=== PATIENT | female | born 1990 | race Caucasian/White ===

== ENCOUNTER → 2020-09-24 11:20 | Outpatient (CLI) | payer OTHER, SELFPAY ==
[2020-09-24 11:39] LABS: Hematocrit 38.5 % (37-47); Hemoglobin 12.9 g/dL (12.0-15.0); Mean Corp Hgb Conc 33.5 g/dL (32-36); Mean Corpuscular Hgb 31.9 pg (27.0-32.0); Mean Corpuscular Volume 95.1 fL (81-99); Mean Platelet Vol. 11.4 fl (6.2-12.0); Platelet Count 147 K/mm3 (150-450); RBC Distribution Width CV 12.4 % (11.6-14.6); RBC Distribution Width SD 43.2 fl (35.1-43.9); Red Blood Count 4.05 M/mm3 (4.2-5.4)
[2020-09-24 11:47] LABS: Glucose Challenge Gest 1H 50g 79 mg/dL (70-140)
== END ==
PROVIDERS: Visit Provider Obstetrics & Gynecology
DX: Z34.82 Encounter for supervision of other normal pregnancy, second trimester (principal)
CPT/HCPCS: 36415; 82950; 85027

== ENCOUNTER → 2020-12-15 | Outpatient (CLI) | payer OTHER, SELFPAY | END | disposition home or self-care (01) | LOC: LABSPEC 13:16 | PROVIDERS: Visit Provider Obstetrics & Gynecology | DX: Z36.85 Encounter for antenatal screening for Streptococcus B (principal) | CPT/HCPCS: 87081 ==

== ENCOUNTER → 2020-12-22 11:13 | Outpatient (CLI) | payer OTHER, SELFPAY ==
[2020-12-22 12:22] LABS: Platelet Count 147 K/mm3 (150-450)
== END ==
PROVIDERS: Visit Provider Obstetrics & Gynecology
DX: D69.6 Thrombocytopenia, unspecified (principal)
CPT/HCPCS: 36415; 85049

== ENCOUNTER → 2021-01-11 | Outpatient (CLI) | payer OTHER, SELFPAY | END | disposition home or self-care (01) | LOC: LABSPEC 17:07 | PROVIDERS: Visit Provider Student in an Organized Health Care Education/Training Program | DX: Z03.818 Encounter for observation for suspected exposure to other biological agents ruled out (principal) | CPT/HCPCS: 87635; U0005; U0003 ==

== ENCOUNTER 2021-01-17 07:05 | Inpatient (IN) | payer OTHER, SELFPAY ==
[2021-01-17] VITALS (19 sets, daily range): BP systolic 109–135; BP diastolic 55–83; PULSE 64–81; TEMP 36.1–37.3; O2SAT 93–98; BMI 29.8
[2021-01-17] MEDS: Lactated Ringers 1,000 ML 50 ML IV (07:45)
[2021-01-17 08:03] LABS: Absolute Lymphocyte Count 2.15 X10^3/uL (0.83-4.51); Basophil# 0.02 X10^3/uL; Basophil% 0.3 % (0-1); Eosinophil# 0.07 X10^3/uL; Hematocrit 37.9 % (37-47); Hemoglobin 12.9 g/dL (12.0-15.0); Lymphocyte # 2.15 X10^3/ul (0.83-4.51); Lymphocyte % 31.4 % (19-41); Mean Corpuscular Hgb 30.6 pg (27.0-32.0); Mean Corpuscular Volume 89.8 fL (81-99); Mean Platelet Vol. 12.4 fl (6.2-12.0); Monocyte# 0.58 X10^3/uL; Monocyte% 8.5 % (0-10); NRBC Flagged by Analyzer 0 % (0-5); Neutrophil # 3.99 X10^3/uL (2.7-7.7); Neutrophil % 58.2 % (47-70); Platelet Count 138 K/mm3 (150-450); RBC Distribution Width CV 12.6 % (11.6-14.6); RBC Distribution Width SD 41.1 fl (35.1-43.9); Red Blood Count 4.22 M/mm3 (4.2-5.4); White Blood Count 6.9 K/mm3 (4.4-11.0)
--- NOTE | 2021-01-17 08:27 | PCM.HP.OB ---
HPI - General General Date of Admission: 01/17/21 HPI Narrative 30-year-old G1, P0 at 41/1 weeks, CHELI 01/10/2020 1 x 7-week ultrasound, admitted for term induction labor. Reports movement. Denies regular contractions, leaking of fluid, vaginal bleeding. Denies headache, vision changes, chest pain, shortness of breath, nausea or vomiting. PFSH PFSH Medical History Anxiety PCOS (polycystic ovarian syndrome) Psoriasis Home Medications calcium citrate 1 mg PO DAILY 01/17/21 [History Last Taken Unknown] cholecalciferol (vitamin D3) [Vitamin D3] 25 mcg PO DAILY 01/17/21 [History Last Taken Unknown] clobetasol 1 applic TOPICAL DAILY 01/17/21 [History Last Taken Unknown] docusate sodium [Colace] 100 mg PO DAILY 01/17/21 [History Last Taken Unknown] omega 7-olr-dlc-fish oil 1 cap PO DAILY 01/17/21 [History Last Taken Unknown] vit-iron fum-folic ac [ Fa] 1 tab PO DAILY 01/17/21 [History Last Taken Unknown] Allergy/AdvReac Type Severity Reaction Status Date / Time No Known Allergies Allergy Verified 01/17/21 07:26 Surgical History H/O lumpectomy History of gynecologic surgery [place] teeth removed Social History (Updated 01/17/21 @ 17:[address] Rosemarie Edwards DO) Smoking Status: Never smoker alcohol intake: never substance use type: does not use History 1 Elective abortions Hx Para 0 Spontaneous abortions Hx # Term Pregnancies Ectopic pregnancies Hx # Pregnancies Multiple births # of living children NST FHR Rate Baby A Baseline: 125 Variability:: Moderate Accelerations:: 15 x 15 Decelerations:: None NST Reactive:: Yes FHR Category:: Category I ROS Constitutional Constitutional: Reports systems reviewed and no addt'l complaints, except as documented Eyes Eyes: Reports systems reviewed and no addt'l complaints, except as documented ENT HEENT: Reports systems reviewed and no addt'l complaints, except as documented Cardiovascular Cardiovascular: Reports systems reviewed and no addt'l complaints, except as documented Respiratory/Chest Respiratory/Chest: Reports systems reviewed and no addt'l complaints, except as documented Gastrointestinal Gastrointestinal: Reports systems reviewed and no addt'l complaints, except as documented Genitourinary Genitourinary: Reports systems reviewed and no addt'l complaints, except as documented Musculoskeletal Musculoskeletal: Reports systems reviewed and no addt'l complaints, except as documented Integumentary Integumentary: Reports systems reviewed and no addt'l complaints, except as documented Neurologic Neurologic: Reports systems reviewed and no addt'l complaints, except as documented Psychiatric Psychiatric: Reports systems reviewed and no addt'l complaints, except as documented Endocrine Endocrinology: Reports systems reviewed and no addt'l complaints, except as documented Hematologic/Lymphatic Hematologic/Lymphatic: Reports systems reviewed and no addt'l complaints, except as documented Allergic/Immunologic Allergic/Immunologic: Reports systems reviewed and no addt'l complaints, except as documented Vital Signs Vital Signs Vital Signs: 01/17/21 07:56 Temperature 97.7 F L Temperature Source Temporal Pulse Rate 81 Blood Pressure 122/77 H BP Systolic 122 BP Diastolic 77 Pulse Ox 98 Weight Weight: 78.834 kg Body Mass Index (BMI) 29.8 Physical Exam Const alert, oriented x3 and no apparent distress HEENT normocephalic Head and Scalp: atraumatic Eyes PERRL Neck full ROM Resp normal respiratory effort, no retractions and clear to auscultation bilaterally Cardio regular rate and regular rhythm GI normal to inspection, nondistended, normoactive bowel sounds Inspection: gravid Narrative: 1 cm on admission per RN Back/Spine normal ROM Extremity normal to inspection Skin no rashes or lesions noted Psych mental status grossly normal Labs Labs Labs: Blood Type O POSITIVE Antibody Screen NEGATIVE Hct 37.9 % (37-47) Hgb 12.9 g/dL (12.0-15.0) Glucose 1 Hr 50 gm 79 mg/dL (70-140) GBS neg 12/15/20 Assessment & Plan (1) : PLAN: 30 yo G1 at 41/1w admitted for induction of labor. Induction started with Cytotec. Patient now oz regularly and will start Pitocin. GBS neg 12/15/20. Gestational thrombocytopenia. (2) Gestational thrombocytopenia:
[2021-01-17] MEDS: miSOPROStol 25 MCG TABLET VAGINAL ×2 (08:38→12:36)
[2021-01-17] MEDS: 0.9% Saline Lock 10 ML Syringe IV (18:30)
[2021-01-17] MEDS: Oxytocin 30 units/NS 500 ml 30 UNITS/500 ML IV.SOLN IV (18:41)
[2021-01-17] MEDS: Lactated Ringers 500 ML 999 ML IV ×2 (19:52→23:15)
[2021-01-18] VITALS (74 sets, daily range): BP systolic 79–140; BP diastolic 50–89; PULSE 54–87; RESP 14–16; TEMP 36.2–36.7; O2SAT 90–100
[2021-01-18] MEDS: fentaNYL-bupivacaine (epidural) 100 ML BAG EPIDURAL ×3 (00:16→11:59)
[2021-01-18] MEDS: Lactated Ringers 500 ML 999 ML IV (02:41)
[2021-01-18] MEDS: Lactated Ringers 1,000 ML 200 ML IV ×3 (03:30→14:12)
--- NOTE | 2021-01-18 07:32 | PCM.PN.BLA ---
Progress Note Patient seen and examined this morning. AROM moderate meconium. Cervical exam: 4-5 cm / 80%/-1. Called overnight for recurrent late decelerations after hypotension secondary to epidural placement. Hypotension recovered with IV fluid bolus. Pitocin turned off at that time, oxygen on, position changes. With recovery of normotension, heart rate returned to category 1. Pitocin turned off again around 540 this morning due to late decelerations. With again recovery of heart tracing. Decision to artificially rupture membranes this morning was made with reassuring heart tones, in an effort to help augment labor. Will plan to wait 20 minutes after AROM and if status reassuring we will resume Pitocin at 1 milliunit/h. Titrate by 1. Patient is aware that the alternative energy engineer and respiratory will be present at time of delivery due to meconium. Discussed labor pattern, AROM, Pitocin titration at length with patient this morning and her at bedside. All questions answered.
[2021-01-18] MEDS: Oxytocin 30 units/NS 500 ml 30 UNITS/500 ML IV.SOLN 334 UNITS IV (15:25)
--- NOTE | 2021-01-18 15:39 | EX.PCM.OBRPT ---
Maternal Data Information Final CHELI: 01/09/21 Final CHELI Source: US <20 weeks Vaginal Delivery Operative Information Date of Procedure: 01/18/21 Pre-Operative Diagnosis: Term bradshaw intrauterine Post-Operative Diagnosis: Term bradshaw intrauterine Surgery / Procedure Performed: Spontaneous Vaginal Delivery Type of Anesthesia: Epidural Estimated Blood Loss: 300cc Findings Description of Procedure: Spontaneous vaginal delivery viable infant male. No nuchal cord. Baby to mother. Cord clamped and cut. Spontaneous delivery of placenta. First-degree laceration repaired in usual fashion. Hemostatic. Hospital Chief Executive Officer present at delivery for meconium fluid. Cord Entanglement: None Infant A Gender: Male (1 minute): 8 (5 minute): 9
[2021-01-18] MEDS: Ibuprofen 600 MG Tablet PO (22:07)
[2021-01-19] VITALS (10 sets, daily range): BP systolic 111–131; BP diastolic 67–84; PULSE 64–72; RESP 15–16; TEMP 36–36.5; O2SAT 96–98
[2021-01-19] MEDS: Ibuprofen 600 MG Tablet PO ×4 (04:44→23:57)
--- NOTE | 2021-01-19 09:50 | PCM.PN.OB ---
Subjective Subjective Patient without complaints. Minimal vaginal bleeding reported. Wants to go home today if baby is able to go. Breast-feeding going well. Objective Data Objective Data Vital Signs: Vital Signs Temp Pulse Resp BP Pulse Ox 97.7 F L 72 16 131/84 H 98 01/19/21 09:25 01/19/21 09:25 01/19/21 09:17 01/19/21 09:25 01/19/21 09:17 Oxygen Delivery Method Room Air Weight: 173 lb 12.8 oz Body Mass Index (BMI) 29.8 Intake & Output: Intake and Output for Last 24 Hours 01/17/21 01/18/21 01/19/21 23:59 23:59 23:59 Intake Total 1259.88 / 1259.88 4940.46 / 4940.46 Output Total 3600 / 3600 Balance 1259.88 / 1259.88 1340.46 / 1340.46 Lab / Micro Data Result Diagrams: 01/17/21 07:45 Assessment & Plan (1) : PLAN: Doing well day #1 status post routine spontaneous vaginal delivery. Will discharge to home with routine instructions if baby is able to go home today.
--- NOTE | 2021-01-19 09:51 | PCM.DC ---
Discharge Instructions Diet Discharge Diet: No restrictions Activity Discharge Activity: May Drive (In 1 to 2 days if not taking narcotic pain medication), May Shower and May Take a Tub Bath May resume sexual activity in: 4-6 weeks Additional Activity Instructions:: Nothing in the vagina for 4-6 weeks. You may return to work/school in 6 weeks. Dressing / Incision Call your doctor if you observe: Fever of 101 or Higher, Inability to urinate, Inability to have a bowel movement and Using more than 1 pad per hour Follow Up Care Please Follow Up With: Rosemarie Edwards DO When: Call [phone] to make an appointment with your doctor in 6 weeks. Test Results: Test results from this visit will be discussed in further detail at your follow-up appointment, if applicable. Discharge Plan Admission Admit Date/Time: 01/17/21 07:05 Primary Reason for Your Visit: Vaginal Delivery Attending Provider: Rosemarie Edwards Primary Care Provider: Care Physician,No Primary Consulting Providers: Rosemarie Edwards Discharge Orders/Prescriptions Prescriptions: No Action clobetasol 0.05 % Cream 1 applic TOPICAL DAILY RF: 0 Fa 60 mg iron-1 mg Tablet 1 tab PO DAILY RF: 0 docusate sodium [Colace] 100 mg Capsule 100 mg PO DAILY RF: 0 calcium citrate 150 mg Capsule 1 mg PO DAILY RF: 0 cholecalciferol (vitamin D3) [Vitamin D3] 25 mcg (1,000 unit) Capsule 25 mcg PO DAILY RF: 0 omega 0-qjs-qwc-fish oil 300-1,000 mg Capsule 1 cap PO DAILY RF: 0 Referrals / Follow Up: Care Physician,No Primary [Primary Care Provider] - Disposition Disposition (needs filled in before D/C Order can be placed): Home, Self Care
[2021-01-19] MEDS: Senna/Docusate Sodium 1 Tablet PO (11:56)
--- NOTE | 2021-01-19 15:26 | NURSING ---
Reviewed student charting that is used for education and learning purposes.
[2021-01-19] MEDS: Benzocaine/Lanolin/Aloe Vera 1 SPRAY EACH TOPICAL (15:30)
[2021-01-20 02:50] VITALS: BP 103/77; PULSE 61; PULSE 70; RESP 16; TEMP 36.2; O2SAT 97
--- NOTE | 2021-01-20 08:47 | PCM.DC.BLA ---
Discharge Summary Date of Admission: 01/17/21 Date of Discharge: 01/20/21 Summary: Patient arrived on 01/17/2021 for induction of labor at term. Patient proceeded to spontaneous vaginal delivery on 01/18/2021. Routine recovery. Home on 01/20/2021 Physical Exam Const alert, oriented x3, no apparent distress, average body habitus, no limitations, healthy appearing and well nourished HEENT normocephalic Eyes PERRL Neck full ROM Resp normal respiratory effort, normal air movement, no retractions and no use of accessory muscles GI normal to inspection, nondistended, normoactive bowel sounds GI Narrative: Uterus firm and below umbilicus Extremity normal to inspection, full ROM and normal capillary refill Neuro moves all extremities Psych mental status grossly normal, thought process normal, cooperative, affect normal and speech normal Meaningful Use Info Meaningful Use Diagnoses (Choose all that apply): None applicable Discharge Plan Admission Admit Date/Time: 01/17/21 07:05 Primary Reason for Your Visit: Vaginal Delivery Attending Provider: Rosemarie Edwards Primary Care Provider: Val Castillo Primary Consulting Providers: Rosemarie Edwards Instructions Additional Instructions / Restrictions: Weightbearing as tolerated. Regular diet. No intercourse for 4 to 6 [address] May [address] Call if fever 101, chest pain, shortness of breath. Follow-up 2-week telehealth visit, 4 to 6-week visit Discharge Orders/Prescriptions Prescriptions: No Action clobetasol 0.05 % Cream 1 applic TOPICAL DAILY RF: 0 Fa 60 mg iron-1 mg Tablet 1 tab PO DAILY RF: 0 docusate sodium [Colace] 100 mg Capsule 100 mg PO DAILY RF: 0 calcium citrate 150 mg Capsule 1 mg PO DAILY RF: 0 cholecalciferol (vitamin D3) [Vitamin D3] 25 mcg (1,000 unit) Capsule 25 mcg PO DAILY RF: 0 omega 1-wxm-ibo-fish oil 300-1,000 mg Capsule 1 cap PO DAILY RF: 0 Referrals / Follow Up: Care Physician,No Primary [Primary Care Provider] - Disposition Disposition (needs filled in before D/C Order can be placed): Home, Self Care
--- NOTE | 2021-01-20 08:49 | PCM.PN.OB ---
Subjective Subjective No overnight complaints. Pain well controlled. Objective Data Objective Data Vital Signs: Vital Signs Temp Pulse Resp BP Pulse Ox 97.2 F L 70 16 103/77 97 01/20/21 02:50 01/20/21 02:50 01/20/21 02:50 01/20/21 02:50 01/20/21 02:50 Oxygen Delivery Method Room Air Weight: 173 lb 12.8 oz Body Mass Index (BMI) 29.8 Intake & Output: Intake and Output for Last 24 Hours 01/18/21 01/19/21 01/20/21 23:59 23:59 23:59 Intake Total 4940.46 / 4940.46 Output Total 3600 / 3600 Balance 1340.46 / 1340.46 Lab / Micro Data Result Diagrams: 01/17/21 07:45 Physical Exam Const alert, oriented x3, no apparent distress, average body habitus, healthy appearing and well nourished HEENT normocephalic and moist oral mucous membranes Head and Scalp: atraumatic Face and Sinus: normal facial exam Eyes PERRL Neck full ROM Resp normal respiratory effort, no retractions and no use of accessory muscles GI normal to inspection, nondistended, normoactive bowel sounds GI Narrative: Uterus firm and below umbilicus Extremity normal to inspection, full ROM and no clubbing, cyanosis or edema Psych mental status grossly normal, affect normal, speech normal and activity/motor behavior normal Assessment & Plan (1) : PLAN: day 2. Breast-feeding. Pain well controlled. Okay to discharge home today
[2021-01-20 08:52] VITALS: BP 119/80; PULSE 65
[2021-01-20 08:59] VITALS: BP 119/80; PULSE 65; RESP 16; TEMP 36.9
--- NOTE | 2021-01-25 12:36 | ED.RN ---
Follow up phone call completed, patient denies any needs. 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 Denied any other symptoms or concerns.
== END 2021-01-20 10:45 | disposition home or self-care (01) | DRG 807 ==
PROVIDERS: Admitting Provider Student in an Organized Health Care Education/Training Program; Visit Provider Student in an Organized Health Care Education/Training Program
DX: O99.284 Endocrine, nutritional and metabolic diseases complicating childbirth (principal); Z37.0 Single live birth; E28.2 Polycystic ovarian syndrome; Z3A.41 41 weeks gestation of pregnancy; L40.9 Psoriasis, unspecified; O99.12 Other diseases of the blood and blood-forming organs and certain disorders involving the immune mechanism complicating childbirth; D69.6 Thrombocytopenia, unspecified; O77.0 Labor and delivery complicated by meconium in amniotic fluid; O76 Abnormality in fetal heart rate and rhythm complicating labor and delivery; O70.0 First degree perineal laceration during delivery
CPT/HCPCS: 59025; 59050; 85025; 86850; 86900; 86901; 99218; J7120; A4216; G0378

== ENCOUNTER 2021-12-09 11:05 | Outpatient (CLI) | payer SELFPAY | END 2021-12-09 11:35 | disposition home or self-care (01) | LOC: WPOUT 11:09 → WP 11:13 | PROVIDERS: Visit Provider Student in an Organized Health Care Education/Training Program | DX: Z39.1 Encounter for care and examination of lactating mother (principal) | CPT/HCPCS: 96158 ==

== ENCOUNTER → 2022-01-09 | Outpatient (CLI) | payer BC, SELFPAY ==
[2022-01-15 10:00] LABS: HPV APTIMA, High Risk Negative (Negative)
== END | disposition home or self-care (01) ==
LOC: LABSPEC 10:12
PROVIDERS: Visit Provider Student in an Organized Health Care Education/Training Program
DX: Z12.4 Encounter for screening for malignant neoplasm of cervix (principal)
CPT/HCPCS: 87624; 88175; G0145

== ENCOUNTER → 2022-05-08 | Outpatient (CLI) | payer BC, SELFPAY ==
--- NOTE | 2022-05-08 13:11 | US_ITS ---
STUDY: THYROID ULTRASOUND REASON FOR EXAM: Female, 31 years old. Enlarged lymphnode-PALP LUMP-LEFT TECHNIQUE: Ultrasound evaluation of the thyroid was performed with real-time and static franco-scale imaging. COMPARISON: None. FINDINGS: RIGHT LOBE: The right lobe of the thyroid gland is enlarged and measures 5.3 cm x 2.1 cm x 1.7 cm. There is a heterogeneous echotexture. There is a 5 mm x 4 mm x 4 mm well-defined solid nodule in the inferior medial aspect of the right lobe. LEFT LOBE: The left lobe of the thyroid gland measures 4.9 cm x 1.9 cm x 1.7 cm. There is a heterogeneous echotexture. There is a 3 mm x 2 mm x 3 mm cystic nodule in the midportion of the left lobe. ISTHMUS: The isthmus measures 2 mm. Bilateral cervical lymphadenopathy is seen. The largest lymph node in the right-sided neck measures 1.77 x 1.8 cm x 0.8 cm. The palpable abnormality in the left-sided neck corresponds to a 2.2 cm x 1.8 cm x 1 cm lymph node. US/Thyroid IMPRESSION: Enlarged right lobe of the thyroid with heterogeneous echotexture of both lobes. 5 mm x 4 mm x 4 mm well-defined hypoechoic solid nodule in the right lobe as well as a 3 mm x 2 mm x 3 mm cyst in the midportion of the left lobe. Bilateral cervical lymph nodes. Electronically Signed: Shahid Higgins MD at 12:06 EST ,
== END | disposition home or self-care (01) ==
PROVIDERS: Referring Provider Family Medicine; Visit Provider Family Medicine
DX: R59.0 Localized enlarged lymph nodes (principal)
CPT/HCPCS: 76536

== ENCOUNTER → 2022-10-04 | Outpatient (CLI) | payer BC, SELFPAY ==
[2022-10-04 13:14] LABS: Absolute Lymphocyte Count 2.04 X10^3/uL (0.83-4.51); Absolute Neutrophil Count 3.4 X10^3/uL (2.0-7.7); Basophil# 0.03 X10^3/uL; Basophil% 0.5 % (0-1); Eosinophil# 0.08 X10^3/uL; Eosinophils% 1.4 % (0-5); Hematocrit 41.9 % (37-47); Lymphocyte # 2.04 X10^3/ul (0.83-4.51); Lymphocyte % 34.5 % (19-41); Mean Corp Hgb Conc 33.4 g/dL (32-36); Mean Corpuscular Hgb 30.9 pg (27.0-32.0); Mean Corpuscular Volume 92.5 fL (81-99); Mean Platelet Vol. 11.8 fl (6.2-12.0); Monocyte# 0.38 X10^3/uL; Monocyte% 6.4 % (0-10); NRBC Flagged by Analyzer 0 % (0-5); Neutrophil # 3.35 X10^3/uL (2.7-7.7); Neutrophil % 56.5 % (47-70); Platelet Count 172 K/mm3 (150-450); RBC Distribution Width CV 12.2 % (11.6-14.6); RBC Distribution Width SD 41.7 fl (35.1-43.9); Red Blood Count 4.53 M/mm3 (4.2-5.4); White Blood Count 5.9 K/mm3 (4.4-11.0)
[2022-10-04 14:48] LABS: HIV - WCH Non-Reactive (Nonreactive); Hepatitis B Surface Antigen Non-Reactive (Nonreactive); Hepatitis C Antibody Non-Reactive (Nonreactive); Rubella IgG Reactive (Nonreactive); Syphilis Antibodies Non-reactive
[2022-10-06 05:07] LABS: Chlamydia By Nucleic Acid AMP Negative (Negative); Gonococcus By Nucleic Acid AMP Negative (Negative)
[2022-10-06 08:11] LABS: V-Zoster IgG (Immunity) 1303 index (Immune >165)
[2022-10-06 22:07] LABS: HPV APTIMA, High Risk Negative (Negative)
== END | disposition home or self-care (01) ==
LOC: LABSPEC 10:34
PROVIDERS: Visit Provider Student in an Organized Health Care Education/Training Program
DX: Z34.81 Encounter for supervision of other normal pregnancy, first trimester (principal); N91.1 Secondary amenorrhea
CPT/HCPCS: 36415; 85025; 86703; 86762; 86780; 86787; 86803; 87086; 87340; 87491; 87591; 87624; 88175; G0145

== ENCOUNTER → 2023-01-31 | Outpatient (CLI) | payer BC, SELFPAY ==
[2023-01-31 14:11] LABS: Absolute Neutrophil Count 3.7 X10^3/uL (2.0-7.7); Basophil# 0.02 X10^3/uL; Basophil% 0.3 % (0-1); Eosinophils% 1.6 % (0-5); Hematocrit 39.5 % (37-47); Hemoglobin 13.3 g/dL (12.0-15.0); Lymphocyte % 30.8 % (19-41); Mean Corp Hgb Conc 33.7 g/dL (32-36); Mean Corpuscular Hgb 32.4 pg (27.0-32.0); Mean Corpuscular Volume 96.3 fL (81-99); Mean Platelet Vol. 11.3 fl (6.2-12.0); Monocyte# 0.34 X10^3/uL; Monocyte% 5.5 % (0-10); NRBC Flagged by Analyzer 0 % (0-5); Neutrophil # 3.73 X10^3/uL (2.7-7.7); Neutrophil % 60.7 % (47-70); Platelet Count 153 K/mm3 (150-450); RBC Distribution Width CV 12.8 % (11.6-14.6); RBC Distribution Width SD 44.9 fl (35.1-43.9); White Blood Count 6.2 K/mm3 (4.4-11.0)
[2023-01-31 14:24] LABS: Glucose Challenge Gest 1H 50g 150 mg/dL (70-140)
[2023-01-31 14:58] LABS: HIV - WCH Non-Reactive (Nonreactive); Syphilis Antibodies Non-reactive
== END | disposition home or self-care (01) ==
LOC: LAB 13:31
PROVIDERS: PCP Family Medicine; Referring Provider Obstetrics & Gynecology; Visit Provider Obstetrics & Gynecology
DX: Z34.90 Encounter for supervision of normal pregnancy, unspecified, unspecified trimester (principal)
CPT/HCPCS: 36415; 82950; 85025; 86703; 86780; 86850; 86900; 86901

== ENCOUNTER → 2023-03-01 | Outpatient (CLI) | payer BC, SELFPAY ==
[2023-03-01 08:40] LABS: Glucose GTT-Gestation. Fasting 80 mg/dL (<105)
[2023-03-01 09:16] LABS: Glucose GTT-Gestational 1 Hr 101 mg/dL (<190)
[2023-03-01 09:50] LABS: Glucose GTT-Gestational 2 Hr 113 mg/dL (<165)
[2023-03-01 11:04] LABS: Glucose GTT-Gestational 3 Hr 80 L (<145)
== END | disposition home or self-care (01) ==
LOC: LAB 07:00
PROVIDERS: PCP Family Medicine; Referring Provider Nurse Practitioner Women's Health; Visit Provider Nurse Practitioner Women's Health
DX: Z13.1 Encounter for screening for diabetes mellitus (principal)
CPT/HCPCS: 36415; 82951; 82952

== ENCOUNTER → 2023-04-18 | Outpatient (CLI) | payer BC, SELFPAY ==
--- OUTSIDE RECORDS SUMMARY | 2023-04-18 10:29 | XMS RPT_ITS | CCD ---
Author Name Unknown Address [address] [place] [address] Organization [facility] Care Team Providers Care Filling Carrier Name Role Phone Dari Neves Unavailable Unavailable Gillian Dubois Unavailable Unavailable JB SPAULDING Unavailable Unavailab JB Shay Unavailable Unavailab DEBI Skelton Unavailable Unavailable NIDA CARY Unavailable UnavailCLARENCE Almonte M.D. Unavailable Shayna vailable RAMON BUSBY Unavailable Unavailable Gillian Dubois PA-C Primary Care Provider Gillian Dubois PA-C Primary Care Provider DR BENJAMÍN VILLEGAS DO Primary Care Unavailable ROMAN DE LA CRUZ Attending Shayna vailable MARELY, PATRICK F Attending Unavailable DAVID GONG Referring Unavailabl YUSRA Sol Primary Care Unavailable MARELY, PATRICK F Attending Unavailable DAVID GONG Referring Unavailabl e YUSRA CARVER Primary Care Unavailable DAVID GONG Referring Unavailabl e YUSRA CARVER M Primary Care Unavailable YAP, PATRICK F Attending Unavailable DAVID GONG Referring Unavailabl EDUARDO Weinberg Attending Unavailable YUSRA CARVER Primary Care Unavailable DAVID GONG Referring Unavailabl YUSRA Sol M Primary Care Unavailable YAP, PATRICK F Attending Unavailable Medications Current Medications Medication Drug Class(es) Dates Sig (Normalized) Sig (Original) polymyxin b 34547 unt/ml / trimethoprim 1 mg/ml ophthalmic solution (2 sources) Dihydrofolate Reductase Inhibitor Antibacterial, Polymyxin-class Antibacterial Start: 07-26-2021 End: 08-02-2021 take 2 drop(s) into the eye(s) every four hours trimethoprim-polymy jorge (POLYTRIM) 10,000 unit- 1 mg/mL ophthalmic solution Indications: Bacterial conjunctivitis Use 2 Drops in both eyes every 4 hours for 7 days. 10 mL 0 07/26/2021 08/02/2021 Active Problems Active Problems Problem Classification Problem Date Documented Da te Episodic/Chronic Inflammation; infection of eye (except that caused by tuberculosis or sexually transmitteddisease) (1 source) Bacterial conjunctivitis; Translations: [Unspecified conjunctivitis] Episodic Other eye disorders (1 source) Red eye; Translations: [Other specified disorders of eye and adnexa] Episodic Other eye disorders (1 source) Disorder of eye; Translations: [Other specified disorders of eye and adnexa] Episodic Other inflammatory condition of skin (3 sources) Psoriasis; Translations: [Psoriasis, unspecified] Onset: 08-02-2018 08-02-2018 Chronic Other lower respiratory disease (2 sources) Cough; Translations: [Cough] Episodic Unclassified (2 sources) Unknown / UNK(Unknown) Onset: 10-18-2016 Past or Other Problems Problem Classification Problem Date Documented Da te Episodic/Chronic Other and unspecified benign neoplasm (3 sources) Multiple benign melanocytic nevi ; Translations: [Melanocytic nevi, unspecified] Onset: 08-02-2018 08-02-2018 Episodic Other skin disorders (3 sources) Lentiginosis; Translations: [Other melanin hyperpigmentation] Onset: 08-02-2018 08-02-2018 Episodic Residual codes; unclassified (3 sources) History of atypical nevus; Translations: [Personal history of other specified conditions] Onset: 08-02-2018 08-02-2018 Episodic Unclassified (1 source) SORE THROAT,COUGH,NASAL CONGESTION Onset: 04-02-2017 Unclassified (1 source) RASH Onset: 10-18-2016 Results Test Name Value Interpretation Reference Range Facil ity Vital Signs Date Time Vital Sign Value Performing Clinician Richard joel 07-26-2021 08:52-0400 Body height 162.6 cm Marlen Beebe PA-C Work Phone: [facility] 07-26-2021 08:52-0400 Body temperature 98.29 [degF] Marlen Wormald PA-C Work Phone: [facility] 07-26-2021 08:52-0400 Body weight 69.4 kg Marlen Wormald PA-C Work Phone: [facility] 07-26-2021 08:52-0400 Diastolic blood pressure 67 mm[Hg] Marlen Wormald PA-C Work Phone: [facility] 07-26-2021 08:52-0400 Heart rate 74 /min Marlen Wormald PA-C Work Phone: [facility] 07-26-2021 08:52-0400 Respiratory rate 16 /min Marlen Wormald PA-C Work Phone: [facility] 07-26-2021 08:52-0400 SaO2% (BldA) [Mass fraction] 98 % Marlen Wormald PA-C Work Phone: [facility] 07-26-2021 08:52-0400 Systolic blood pressure 98 mm[Hg] Marlen Wormald PA-C Work Phone: [facility] Encounters Encounter Date Encounter Type Care Provider Facility Start: 04-12-2023 End: 04-12-2023 ambulatory [facility] Start: 04-06-2023 End: 04-06-2023 ambulatory [facility] Start: 03-13-2023 End: 03-13-2023 ambulatory [place] Yonathan [facility] Start: 02-13-2023 End: 02-13-2023 ambulatory [facility] Start: 02-13-2023 End: 02-13-2023 ambulatory PATR[facility] Start: 12-29-2022 End: 12-30-[address] BENJAMÍN VILLEGAS DO Facility:B Start: 07-26-2021 End: 07-26-2021 Subsequent hospital visit by physician [facility] Procedures Date Procedure Procedure Detail Performing Clinician Start: 12-04-2018 Adult depression screening assessment Marlen Beebe PA-C Work Phone: Start: 08-15-2007 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 Start: 08-16-2023 HPV TESTING HPV TESTING [facility] Start: 11-24-2022 Influenza vaccination Influenza Vacc ine (#1) [facility] Start: 03-26-2022 Depression Assessment Depression Ass essment [facility] Start: 11-24-2021 Influenza vaccination INFLUENZA (Sea son Ended) [facility] Start: 12-05-2019 Adult depression scr eening assessment DEPRESSION SCREENING [facility] Start: [address] [facility] Start: 06-08-2007 HEPATITIS C SCREENING HEPATITIS C SC REENING [facility] Start: 06-08-2007 HIV SCREENING HIV SCREENING [facility] Start: 1994 COVID-19 VACCINE (1) COVID-19 VACCIN E (1) [facility] Start: 1989 Covid-19 Vaccine (#1) Covid-19 Vacci ne (#1) [facility] Start: 1989 Hepatitis B Vaccine (1 of 3 - 3-dose series) Hepatitis B Vaccine (1 of 3 - 3-dose series) [facility] Immunizations Immunization Date Immunization Notes Care Provider Fa cili 01-07-2020 influenza virus vacc ine, unspecified formulation Khris Fry MD Work Phone: [facility] Payers Date Payer Category Payer Unknown [id number] 2020 Private Health Insurance [facility] UMR CHOICE PLUS [id number] 2020-Present [phone] [address] [address] [place] [address] O [id number] 2017 Unknown [id number] 1989 Unknown [id number] 1989 Unknown [id number] 1989 Unknown [id number] 1989 Unknown [id number] 1989 Unknown [id number] 1989 Unknown [id number] 1989 Unknown [id number] Unknown [id number] Social History Date Type Detail Facility Start: 08-02-2018 Tobacco smoking status NMIS Never sm oked tobacco [facility] Start: 08-02-2018 Tobacco use and exposure Smoke less tobacco non-user [facility] Start: 01-23-2021 Alcohol intake Lifetime non-d iram (finding) [facility] Start: 02-04-2019 End: 01-15-2020 History SDOH Alcohol Frequency 1 [facility] Start: 02-04-2019 History SDOH Financial 5 [facility] Start: 02-04-2019 History SDOH Transport Med 2 [facility] Start: 1989 Sex Assigned At Not on file [facility] Start: 07-16-2021 End: 07-26-2021 Exposure to SARS-CoV-2 (event) Not sure 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 Start: 01-15-2020 End: 03-02-2020 History of Social function [facility] Start: 01-15-2020 End: 03-02-2020 Alcohol Use Disorder Identification Test - Consumption [AUDIT-C] [facility] How often to you hav e a drink containing alcohol? Never [facility] Average Number of Drinks Not on file [facility] (I/We) worried whealex er (my/our) food would run out before (I/we) got money to buy more. Never true [facility] Progress note 07-26-2021 Note Date & Type Note Facility 07-26-2021 Note HNO ID: [id number] Author: OBDULIO Valentin) Service: Radiology Author Type: Technologist Type: Progress Notes Filed: 07/26/2021 10:54 AM Note Text: Radiology Service Progress Note PATIENT NAME: Benjie Quarles DATE OF SERVICE: July 26, 2021 TIME: 10:54 AM PATIENT IDENTITY VERIFICATION COMPLETED USING TWO (2) IDENTIFIERS: Name and Date of confirmed by patient verbally. FALL SCREENING: Has the patient had 2 falls in the last year or 1 fall with injury or currently using an Ambulatory Assistive Device (Walker, Cane, Wheelchair, Crutches, etc.)? No PATIENT GENDER DATA: Female. status: : No status: NO. PATIENT RELEVANT IMPLANT DATA REVIEWED: Not Applicable RADIOLOGY DEPARTMENT: General X-ray: Exam(s) Completed: Chest X-Ray PERIPHERAL IV DATA: Not applicable SIGNED BY: OBDULIO Valentin) July 26, 2021 10:54 AM [facility] History of Present illness Narrative 07-26-2021 OBDULIO Valentin) - 07/26/2021 10:45 AM EDT Note Date & Type Note Facility 07-26-2021 History of Presen t illness Narrative Radiology Service Progress Note PATIENT NAME: Benjie Quarles DATE OF SERVICE: July 26, 2021 TIME: 10:54 AM PATIENT IDENTITY VERIFICATION COMPLETED USING TWO (2) IDENTIFIERS: Name and Date of confirmed by patient verbally. FALL SCREENING: Has the patient had 2 falls in the last year or 1 fall with injury or currently using an Ambulatory Assistive Device (Walker, Cane, Wheelchair, Crutches, etc.)? No PATIENT GENDER DATA: Female. status: : No status: NO. PATIENT RELEVANT IMPLANT DATA REVIEWED: Not Applicable RADIOLOGY DEPARTMENT: General X-ray: Exam(s) Completed: Chest X-Ray PERIPHERAL IV DATA: Not applicable SIGNED BY: OBDULIO Valentin) July 26, 2021 10:54 AM documented in this encounter [facility] Progress note 07-26-2021 Note Date & Type Note Facility 07-26-2021 Note HNO ID: [id number] Author: Marlen Beebe PA-C Service: ? Author Type: Physician Frame Opener Type: Progress Notes Filed: 07/26/2021 9:11 AM Note Text: Subjective Benjie Quarles is a 31 year old female with no significant past medical history who [facility] for evaluation of bilateral eye redness, irritation, and discharge that began last night. Patient also endorses a productive cough x1 week. She states that the cough has been productive of yellow sputum. She denies having any fevers. No known COVID-19 or influenza exposure. Review of Systems Constitutional: Negative for chills, diaphoresis and fever. HENT: Negative for congestion, ear pain and sore throat. Eyes: Positive for pain (irritation, bilateral), discharge (bilateral) and redness (bilateral). Respiratory: Positive for cough. Negative for shortness of breath and wheezing. Skin: Negative for rash and wound. Neurological: Negative for weakness and headaches. All other systems reviewed and are negative. Objective BP 98/67 Pulse 74 Temp 36.8 ?C (98.3 ?F) (Tympanic) Resp 16 Ht 162.6 cm (5' 4 ) Wt 69.4 kg (153 lb) LMP 07/26/2021 SpO2 98% Yes BMI 26.26 kg/m? Physical Exam Vitals reviewed. Constitutional: General: She is not in acute distress. Appearance: Normal appearance. She is normal weight. She is not ill-appearing or toxic-appearing. Comments: The patient appears to be non-toxic, in no acute distress, and resting comfortably in a chair. HENT: Head: Normocephalic and atraumatic. Eyes: General: Right eye: Discharge present. Left eye: Discharge present. Extraocular Movements: Extraocular movements intact. Conjunctiva/sclera: Right eye: Right conjunctiva is injected. Left eye: Left conjunctiva is injected. Pupils: Pupils are equal, round, and reactive to light. Cardiovascular: Rate and Rhythm: Normal rate and regular rhythm. Heart sounds: Normal heart sounds. No murmur heard. No friction rub. No gallop. Pulmonary: Effort: Pulmonary effort is normal. No respiratory distress. Breath sounds: Rhonchi (bilateral lower) present. No wheezing. Musculoskeletal: Cervical back: Normal range of motion. Skin: General: Skin is warm and dry. Findings: No erythema or rash. Neurological: General: No focal deficit present. Mental Status: She is alert and oriented to person, place, and time. Mental status is at baseline. Psychiatric: Mood and Affect: Mood normal. Behavior: Behavior normal. Thought Content: Thought content normal. Assessment and Plan Exam reveals bilateral conjunctival injection consistent with acute bacterial conjunctivitis. There are mild bilateral rhonchi heard in the bilateral lung bases upon auscultation of the lungs. Chest x-ray ordered to rule out pneumonia. Patient counseled regarding suspected diagnosis and given prescription for Polytrim ophthalmic solution. Patient advised to follow-up with her primary care provider as needed. ASSESSMENT/PLAN: 1. Cough - ICD9: 786.2, ICD10: R05.9 (primary diagnosis) - XR CHEST 2V FRONTAL/LAT 2. Bacterial conjunctivitis - ICD9: 372.39, 041.9, ICD10: H10.9 - POLYMYXIN B SULFATE 10,000 UNIT-TRIMETHOPRIM 1 MG/ML EYE DROPS 3. Eye redness - ICD9: 379.93, ICD10: H57.89 4. Eye irritation - ICD9: 379.99, ICD10: H57.89 Medical Decision Making: Problems: Low: 2+ self-limited or minor problems Risk: Minimal: Minimal risk from testing/treatment Moderate: Drug management Medical Decision Making Level: 3 - Low I spent a total of 20 minutes on the date of the service which included preparing to see the patient, [id number] patient care, completing clinical documentation, performing a medically appropriate examination, counseling and educating the patient/family/caregiver and ordering medications, tests, or procedures. [facility] Instructions 07-26-2021 Patient Instructions Note Date & Type Note Facility 07-26-2021 Instructions Marlen Beebe PA-C - 07/26/2021 9:05 AM EDT [facility] PATIENT INFO CONJUNCTIVITIS OVERVIEW Conjunctivitis, also called pinkeye , is defined as an inflammation of the conjunctiva. The conjunctiva is the thin membrane that lines the inner surface of the eyelids and the whites of the eyes (called the sclera). Conjunctivitis can affect children and adults. The most common symptoms of conjunctivitis include a red eye and discharge. There are many potential causes of conjunctivitis, including bacterial or viral infections, allergies, or a non-specific condition (eg, a foreign body in the eye). All types of conjunctivitis cause a red eye, although not everyone with a red eye has conjunctivitis. TYPES OF CONJUNCTIVITIS There are four main types of conjunctivitis: bacterial, viral, allergic, and non-specific. Most cases of infectious conjunctivitis are viral in adults and children; however, bacterial conjunctivitis is more common in children than in adults. Viral conjunctivitis Viral conjunctivitis is typically caused by a virus that can also cause the common cold. A person may have symptoms of conjunctivitis alone, or as part of a general cold syndrome, with swollen lymph nodes (glands), fever, a sore throat, and runny nose. Viral conjunctivitis is highly contagious. It is spread by contact, usually with objects which have come into contact with the infected person's eye secretions. As examples, the virus can be transmitted when an infected person touches their eye and then touches another surface (eg, door handle) or shares an object that has touched their eye (eg, a towel or pillow case). The most common symptoms of viral conjunctivitis include redness, watery or mucus discharge, and a burning, giorgio, or gritty feeling in one eye. Some people have morning crusting followed by watery discharge, perhaps with some scant mucus discharge throughout the day. The second eye usually becomes infected within 24 to 48 hours. There is no cure for viral conjunctivitis. Recovery can begin within days, although the symptoms frequently get worse for the first three to five days, with gradual improvement over the following one to two weeks for a total course of two to three weeks. Some people experience morning crusting that continues for up to two weeks after the initial symptoms, although the daytime redness, irritation, and tearing should be much improved. Bacterial conjunctivitis Bacterial conjunctivitis is highly contagious, often affecting multiple family members or children within a classroom. Bacterial conjunctivitis is spread by contact, usually with objects which have come into contact with the infected person's eye secretions. As examples, the virus can be transmitted when an infected person touches their eye and then touches another surface (eg, door handle) or shares an object that has touched their eye (eg, a towel or pillow case). The most common symptoms of bacterial conjunctivitis include redness and thick discharge from one eye, although both eyes can become infected. The discharge may be yellow, white, or green, and it usually continues to drain throughout the day. The affected eye often is stuck shut in the morning. Most types of bacterial conjunctivitis resolve quickly and cause no permanent damage when treated with antibiotic eye drops or ointment Non-specific conjunctivitis It is possible to develop a red eye and discharge that is not caused by an infection or allergy. The most common causes include one of the following. People with a dry eye may have chronic or intermittent redness or discharge. A person whose eyes are irrigated after a chemical splash may have redness and discharge. A person with a foreign body (eg, dust, eyelash) in the eye may have redness and discharge for 12 to 24 hours after the object is removed. All of these problems generally improve spontaneously within 24 hours. CONJUNCTIVITIS TREATMENT The treatment of conjunctivitis depends upon the cause. For this reason, it is important to have the correct diagnosis before treatment begins. Viral conjunctivitis treatment A topical antihistamine/decongestant eye drop may help to relieve the itching and irritation of viral conjunctivitis. These drops are available without a prescription in most pharmacies. However, particular care must be taken to avoid spreading viral infections from one eye to the other apply drops only to affected eye and wash hands thoroughly after application. Similar to cold medicines, this treatment may reduce the symptoms but does not shorten the course of the infection. Another option is to use warm or cool compresses, as needed. The irritation and discharge may get worse for three to five days before getting better, and symptoms can persist for two to three weeks. Bacterial conjunctivitis treatment Bacterial conjunctivitis is usually treated with an antibiotic eye drop or ointment. When started early, treatment helps to shorten the duration of symptoms, although most cases do resolve spontaneously if no treatment is used. Adults Adults are usually treated with an antibiotic eye drop or ointment for five to seven days. Redness, irritation, and eye discharge should begin to improve within 24 to 48 hours. If there is no improvement or if the condition worsens within this time, the person should be evaluated by an crew supervisor. Contact lens wearers People who wear contact lenses should be evaluated by a healthcare provider before treatment begins; this is to confirm the diagnosis of conjunctivitis and to be sure that another, more serious condition related to contact lens use (an infection of the cornea), is not present. People who wear contact lenses should avoid wearing the lenses during the first 24 hours of treatment, or until the eye is no longer red. The contact case should be thrown away and the contacts disinfected overnight or replaced (if disposable). Return to work/school The safest approach to avoid spreading viral and bacterial conjunctivitis to others is to stay home until there is no longer any discharge from the eye(s). However, this is not practical for most students and for those who work outside the home. Most daycare centers and schools require that students receive 24 hours of eye drops or ointment before returning to school. This treatment helps to prevent the spread of bacterial conjunctivitis, but is not necessary or helpful for children with viral conjunctivitis. Viral conjunctivitis is similar to a cold because it spreads easily between people. Younger children, who may not remember to wash their hands or avoid touching their eyes, should probably not attend school until the discharge has resolved. Older students or adults may choose to attend school/work, although they should limit close contact with others. In addition, adults who have contact with the very old, the very young, and people with a weakened immune system should limit contact with these susceptible individuals. Non-specific conjunctivitis treatment The conjunctiva heals quickly after it is injured, and non-specific conjunctivitis usually resolves within a few days without any treatment. However, the eye may feel better faster when it is treated with a lubricant, such as drops or ointments. These products are available without a prescription in most pharmacies. Preservative-free preparations are more expensive and are necessary only for people with a severe case of dry eye and those who are allergic to preservatives. Lubricant drops can be used as often as hourly with no side effects. The ointment provides longer lasting relief but blurs vision temporarily. For this reason, some people use ointment only at bedtime. It may be worthwhile to switch brands if one brand of drop or ointment is irritating, since each preparation contains different active and inactive ingredients and preservatives. Antibiotic or steroid eye drops/ointments are not recommended unless there is a specific reason they are needed (eg, a bacterial infection or inflammatory condition). Using these treatments when they are not needed can lead to serious complications. If the symptoms of conjunctivitis do not improve within two weeks, an examination with an crew supervisor may be recommended. CONJUNCTIVITIS PREVENTION Bacterial and viral conjunctivitis are both highly contagious and spread by direct contact with secretions or contact with contaminated objects. Simple hygiene measures can help minimize transmission to others. Adults or children with bacterial or viral conjunctivitis should not share handkerchiefs, tissues, towels, cosmetics, or bed sheets/pillows with uninfected family or friends. Hand washing is an essential and highly effective way to prevent the spread of infection. Hands should be wet with water and plain soap, and rubbed together for 15 to 30 seconds. It is not necessary to use antibacterial hand soap. Teach children to wash their hands before and after eating and after touching the eyes, coughing, or sneezing. Alcohol-based hand rubs are a good alternative for disinfecting hands if a sink is not available. Hand rubs should be spread over the entire surface of hands, fingers, and wrists until dry, and may be used several times. These rubs can be used repeatedly without skin irritation or loss of effectiveness. documented in this encounter [facility] History of Present illness Narrative 07-26-2021 Marlen Beebe PA-C - 07/26/2021 8:42 AM EDT Note Date & Type Note Facility 07-26-2021 History of Presen t illness Narrative Subjective Benjie Quarles is a 31 year old female with no significant past medical history who presents to [facility] today for evaluation of bilateral eye redness, irritation, and discharge that began last night. Patient also endorses a productive cough x1 week. She states that the cough has been productive of yellow sputum. She denies having any fevers. No known COVID-19 or influenza exposure. Review of Systems Constitutional: Negative for chills, diaphoresis and fever. HENT: Negative for congestion, ear pain and sore throat. Eyes: Positive for pain (irritation, bilateral), discharge (bilateral) and redness (bilateral). Respiratory: Positive for cough. Negative for shortness of breath and wheezing. Skin: Negative for rash and wound. Neurological: Negative for weakness and headaches. All other systems reviewed and are negative. Objective BP 98/67 Pulse 74 Temp 36.8 C (98.3 F) (Tympanic) Resp 16 Ht 162.6 cm (5' 4 ) Wt 69.4 kg (153 lb) LMP 07/26/2021 SpO2 98% Yes BMI 26.26 kg/m Physical Exam Vitals reviewed. Constitutional: General: She is not in acute distress. Appearance: Normal appearance. She is normal weight. She is not ill-appearing or toxic-appearing. Comments: The patient appears to be non-toxic, in no acute distress, and resting comfortably in a chair. HENT: Head: Normocephalic and atraumatic. Eyes: General: Right eye: Discharge present. Left eye: Discharge present. Extraocular Movements: Extraocular movements intact. Conjunctiva/sclera: Right eye: Right conjunctiva is injected. Left eye: Left conjunctiva is injected. Pupils: Pupils are equal, round, and reactive to light. Cardiovascular: Rate and Rhythm: Normal rate and regular rhythm. Heart sounds: Normal heart sounds. No murmur heard. No friction rub. No gallop. Pulmonary: Effort: Pulmonary effort is normal. No respiratory distress. Breath sounds: Rhonchi (bilateral lower) present. No wheezing. Musculoskeletal: Cervical back: Normal range of motion. Skin: General: Skin is warm and dry. Findings: No erythema or rash. Neurological: General: No focal deficit present. Mental Status: She is alert and oriented to person, place, and time. Mental status is at baseline. Psychiatric: Mood and Affect: Mood normal. Behavior: Behavior normal. Thought Content: Thought content normal. Assessment and Plan Exam reveals bilateral conjunctival injection consistent with acute bacterial conjunctivitis. There are mild bilateral rhonchi heard in the bilateral lung bases upon auscultation of the lungs. Chest x-ray ordered to rule out pneumonia. Patient counseled regarding suspected diagnosis and given prescription for Polytrim ophthalmic solution. Patient advised to follow-up with her primary care provider as needed. ASSESSMENT/PLAN: 1. Cough - ICD9: 786.2, ICD10: R05.9 (primary diagnosis) - XR CHEST 2V FRONTAL/LAT 2. Bacterial conjunctivitis - ICD9: 372.39, 041.9, ICD10: H10.9 - POLYMYXIN B SULFATE 10,000 UNIT-TRIMETHOPRIM 1 MG/ML EYE DROPS 3. Eye redness - ICD9: 379.93, ICD10: H57.89 4. Eye irritation - ICD9: 379.99, ICD10: H57.89 Medical Decision Making: Problems: Low: 2+ self-limited or minor problems Risk: Minimal: Minimal risk from testing/treatment Moderate: Drug management Medical Decision Making Level: 3 - Low I spent a total of 20 minutes on the date of the service which included preparing to see the patient, [id number] patient care, completing clinical documentation, performing a medically appropriate examination, counseling and educating the patient/family/caregiver and ordering medications, tests, or procedures. documented in this encounter [facility] Progress note 06-03-2021 Note Date & Type Note Facility 06-03-2021 Note HNO ID: [id number] Author: Allie Stanley PA-C Service: ? Author Type: Physician Frame Opener Type: Progress Notes Filed: 06/03/2021 5:14 PM Note Text: Surgical mask, face shield, N95, and gloves worn for all in-person care. 06/03/2021 Patient presents with: Viral Syndrome: cough, congestion, sore throat SUBJECTIVE: This is a 30 year old that is here today for concern for URI symptoms and cough x 4-5 days. She is . She complains of cough, sore throat, and congestion x 4 days. Has noted some course BS and feeling in the anterior chest. Symptoms x 4 days (started 05/30/21). COVID exposure: none Her boyfriend has the same symptoms at home, but also has had fever. He had a negative COVID test. She admits to possibly some low grade temp and body aches herself. Patient denies wheezing, shortness of breath, increased WOB, or chest pain. She declines COVID or flu testing here. COVID vaccine: yes History of COVID: none Influenza vaccine: yes Asthma: none Pneumonia: none Tobacco: none Pain on scale of 0-10 with 0 being no pain and 10 being greatest pain: none Nothing makes the symptoms better. Nothing makes them worse. Self-treatment:. Motrin, salt water The severity is mild and the symptoms are not improving. The patient did not have a similar problem in the last 3 months. The patient did not take any antibiotics in the last 3 months. Barriers to learning: none. Reviewed meds, OTCs, herbals or supplements. Reviewed allergies, medications, social history, and past medical history. PAST MEDICAL HISTORY Diagnosis Date - Anxiety - Hx of tonsillectomy - Psoriasis ALLERGIES Patient has no known allergies. MEDICATIONS Current Outpatient Medications Medication Sig - cholecalciferol (VITAMIN D-3) 50 mcg (2,000 unit) tablet Take 1,000 Units by mouth once daily. - calcium carbonate (CALCIUM 500 ORAL) Take by mouth once daily. - Multivitamin capsule Take 1 capsule by mouth once daily. - L.acid/B.bifidum/B.animal/FOS (PROBIOTIC COMPLEX ORAL) Take by mouth. No current facility-administered medications for this visit. Medications and allergies reviewed by this provider. SOCIAL HISTORY Social History Tobacco Use - Smoking status: Never Smoker - Smokeless tobacco: Never Used Vaping Use - Vaping Use: Never used Substance Use Topics - Alcohol use: Never - Drug use: Never REVIEW OF SYSTEMS Review of Systems ROS: constitutional: maybe low grade temps and body aches, HENT- sinus symptoms, sore throat, Eyes- neg, heart-neg, respiratory-Cough, GI-neg, -neg, skin-neg, Allergy- neg, lymph-neg, neuro-neg, psych-neg- All systems neg except as noted above in HPI. OBJECTIVE: BP 105/70 Pulse 86 Temp 37 ?C (98.6 ?F) (Tympanic) Resp 16 Ht 162.6 cm (5' 4 ) Wt 68.5 kg (151 lb) LMP 12/28/2018 (Approximate) SpO2 98% Yes BMI 25.92 kg/m? . Vital signs reviewed by this provider. Physical Exam AAOx3, no acute distress, patient is pleasant, well groomed, dressed appropriately. General: WD, WN, NAD, alert. HEENT: No facial erythema or swelling. Eyes: PERRL. EOMI. No erythema or discharge. -Ears: TMs pearly dubois with light reflex, ear canals not red or swollen. -Nose-nasal mucosa is injected and nares are raw, +clear discharge. No polyps, nasal septum midline. -Throat: pharynx pink with no edema/mass/exudate/erythema, buccal mucosa pink and moist with no lesions. Tonsils are not enlarged. No erythema or exudate. Palate is equal. Uvula is midline- no erythema or edema. Head: + maxillary tenderness noted upon palpation. Neck: no masses or lymphadenopathy. Chest: Course BS in middle lows posteriorly bilaterally, equal breath sounds; good air exchange throughout. No wheezing, rhonchi, or crackles; no retractions, tripoding, or nasal flaring noted. Heart: RRR, no murmur, rub, or gallop.. Skin: no rash noted, cap refill <3sec, normal skin turgor noted. ASSESSMENT/PLAN: 1. Sore throat - ICD9: 462, ICD10: J02.9 (primary diagnosis) Part of the upper resp symptoms 2. Sinobronchitis - ICD9: 473.9, 490, ICD10: J32.9, J40 She is . - AMOXICILLIN 875 MG-POTASSIUM CLAVULANATE 125 MG TABLET Declined COVID/flu testing here Encourage fluids, rest. Tylenol and Motrin for pain and fever Saline Nasil spray, Neti Pot, vaporizer, Vicks. Try Cepocol lozenges or Chloraseptic throat spray. Warm salt water gargles. Cough and deep breath- 10x/hr while awake. Call PCP if sx worsen or no better. If symptoms worsen, or new symptoms develop go to ER. If you have worsening of breathing or breathing changes- go to ER. If you have persistent fever unrelieved by Tylenol/Motrin- go to the ER. Follow up as needed. Barriers to learning: none. The patient verbalizes understanding and is in agreement with plan of care. This patient encounter involved the screening or treatment of novel coronavirus infection ( (more content not included)... [facility] Progress note 01-23-2021 Note Date & Type Note Facility 01-23-2021 Note HNO ID: [id number] Author: Lenore Carvalho APRN.HEALTH EDUCATION AIDE Service: ? Author Type: Nurse Practitioner Type: Progress Notes Filed: 01/23/2021 11:16 AM Note Text: This note was created using NoteWriter. Subjective Benjie Quarles is a 30 year old female. HPI by patient: Benjie Quarles is a 30 year old female presenting to the office with the complaint of a rash. Started approximately 3 days prior, on . Associated symptoms include progressively spreading. States this does burn and itch. Pulsing and hot while laying down- this in uncomfortable for her. Denies drainage unless she scrapes- clear liquid at times. History of psoriasis and is 5 days post. Denies exposure to hand, foot, and mouth. Denies cough, shortness of breath, runny nose, sinus congestion, headache, fever, chills, body aches, and gi symptoms. No increased fatigue- just had a baby. Vaccinated for Covid: yes. Personal history of Covid: none. Strep contacts: none. Sick contacts: none- does state a nurse was sick with sinus infection. Covid + contacts: none. Travel in the last 14 days: none. Smoking history/second hand smoke: none. OTC tylenol. Unsure antibiotic use in the last 30 days- was in the hospital. ALLERGIES No Known Allergies Family History Reviewed Including Cardiac Diseases, Psychiatric Diseases, AND Substance Abuse Problem: Melanoma Relation: Mother Age of Onset: (Not Specified) Problem: Hyperlipidemia Relation: Father Age of Onset: (Not Specified) Problem: Heart Relation: Maternal Grandmother Age of Onset: (Not Specified) Problem: other (Celiac Disease) Relation: Maternal Grandmother Age of Onset: (Not Specified) Problem: Heart Attack Relation: Maternal Grandfather Age of Onset: (Not Specified) Problem: Stroke Relation: Maternal Grandfather Age of Onset: (Not Specified) Problem: Hypertension Relation: Maternal Grandfather Age of Onset: (Not Specified) Problem: Hypertension Relation: Paternal Grandmother Age of Onset: (Not Specified) Problem: Stroke Relation: Paternal Grandmother Age of Onset: (Not Specified) Problem: Skin Cancer Relation: Paternal Grandmother Age of Onset: (Not Specified) Problem: Diabetes Relation: Paternal Grandfather Age of Onset: (Not Specified) Problem: other (lung cancer) Relation: Paternal Grandfather Age of Onset: (Not Specified) Social History Tobacco Use Smoking status: Never Smoker Smokeless tobacco: Never Used Vaping Use Vaping Use: Never used Alcohol use: Never Drug use: Never Active Ambulatory Problems Psoriasis Date Noted: 08/02/2018 Lentigines Date Noted: 08/02/2018 Multiple benign nevi Date Noted: 08/02/2018 Hx of atypical nevus Date Noted: 08/02/2018 Resolved Ambulatory Problems No Resolved Ambulatory Problems Past Medical History: No date: Anxiety No date: Hx of tonsillectomy Review of Systems Constitutional: Negative. HENT: Positive for sore throat. Negative for congestion, ear pain and rhinorrhea. Eyes: Negative. Respiratory: Negative. Cardiovascular: Negative. Gastrointestinal: Negative. Endocrine: Negative. Genitourinary: Negative. Musculoskeletal: Negative. Skin: Positive for rash. Neurological: Negative. Hematological: Negative. Objective BP 110/76 Pulse 83 Temp 36.1 ?C (96.9 ?F) (Temporal) Resp 16 Ht 162.6 cm (5' 4 ) Wt 70.8 kg (156 lb) LMP 12/28/2018 (Approximate) SpO2 98% Yes BMI 26.78 kg/m? Physical Exam Constitutional: General: She is not in acute distress. Appearance: She is not ill-appearing, toxic-appearing or diaphoretic. HENT: Mouth/Throat: Lips: No lesions. Mouth: No oral lesions. Pharynx: Oropharynx is clear. No oropharyngeal exudate or posterior oropharyngeal erythema. Cardiovascular: Rate and Rhythm: Normal rate and regular rhythm. Pulmonary: Effort: Pulmonary effort is normal. Skin: Findings: Rash (scattered vesiculopapular rash to the bilateral hands, feet, abdomen, back, and around the mouth- not in the mouth. No streaking, no drainage from the vesicles) present. Psychiatric: Behavior: Behavior is cooperative. Assessment and Plan (R21) Rash (primary encounter diagnosis) Plan: HSV 1,2/VZV AMP MOLECULAR DETECT, triamcinolone acetonide (KENALOG) 0.1 % cream (J02.9) Pharyngitis, unspecified etiology Plan: STREP A MOLECULAR (POC) -Strep negative in office. Gargle with salt water. May viral infections can take 10-14 days to fully resolve. -Declines covid testing- call or self schedule if you change your mind. -Avoid oral steroids, is - will have patient use triamcinolone cream 2 times/day for 7 days. -Viral swab will go to mychart. Appears more like hand, foot, mouth. -Keep area clean and dry. Non scented antimicrobial soap and water. -If you have significant itching please avoid heat as this can make the itching worse. Cool compresses for comfort. -Do (more content not included)... [facility] Evaluation note Note Date & Type Note Facility documented in this encounter [facility] Evaluation note Note Date & Type Note Facility documented in this encounter [facility] Summary Purpose Family History No Family History Records FoundNo Family History Records FoundNo Family History Records FoundNo Family History Records FoundNo Family History Records FoundNo Family History Records FoundNo Family History Records Found Advance Directives No Advanced Directives Records FoundNo Advanced Directives Records FoundNo Advanced Directives Records FoundNo Advanced Directives Records FoundNo Advanced Directives Records FoundNo Advanced Directives Records FoundNo Advanced Directives Records Found Additional Source Comments INFORMATION SOURCE (unrecogn ized section and content) DATE CREATED AUTHOR AUTHOR'S ORGANIZ ATION 09/28/2017 [facility] DATE CREATED AUTHOR AUTHOR'S ORGANIZ ATION 03/13/2019 [facility] DATE CREATED AUTHOR AUTHOR'S ORGANIZ ATION 07/27/2021 [facility] DATE CREATED AUTHOR AUTHOR'S ORGANIZ ATION 07/28/2021 [facility] DATE CREATED AUTHOR AUTHOR'S ORGANIZ ATION 01/03/[address] [facility] ([place] DATE CREATED AUTHOR AUTHOR'S ORGANIZ ATION 04/13/2023 Source Comments (unrecognize d section and content) In the event this informatio n is protected by the Federal Confidentiality of Alcohol and Drug Abuse Patient Records regulations: The Federal rules restrict any use of the information to criminally investigate or prosecute any alcohol or drug abuse patient.[facility] the event this information is protected by the Federal Confidentiality of Alcohol and Drug Abuse Patient Records regulations: The Federal rules restrict any use of the information to criminally investigate or prosecute any alcohol or drug abuse patient.[facility] the event this information is protected by the Federal Confidentiality of Alcohol and Drug Abuse Patient Records regulations: The Federal rules restrict any use of the information to criminally investigate or prosecute any alcohol or drug abuse patient.[facility] Reason for Visit (unrecogniz ed section and content) Care Teams (unrecognized sec tion and content) Filling Carrier Relationship Specialty Start Date End Date Gillian Dubois PA-C [address] [place] [address] [address] [place] [phone] PCP - General Family Practice 08/02/18 Filling Carrier Relationship Specialty Start Date End Date Gillian Dubois PA-C [address] [place] [address] [address] [place] [phone] PCP - General Family Medicine 08/02/18 FOR RECORDS PERTAINING TO PATIENTS WHO ARE OR HAVE BEEN ENROLLED IN A CHEMICAL DEPENDENCY/SUBSTANCEABUSE PROGRAM, SOME INFORMATION MAY BE OMITTED. This clinical summary was aggregated from multiple sources. Caution should be exercised in using it in the provision of clinical care. This summary normalizes information from multiple sources, and as a consequence, information in this document may materially change the coding, format and clinical context of patient data. In addition, data may be omitted in some cases. CLINICAL DECISIONS SHOULD BE BASED ON THE PRIMARY CLINICAL RECORDS. [facility]. provides no warranty or guarantee of the accuracy or completeness of information in this document.
== END | disposition home or self-care (01) ==
LOC: LABSPEC 10:08
PROVIDERS: PCP Family Medicine; Referring Provider Obstetrics & Gynecology; Visit Provider Obstetrics & Gynecology
DX: Z34.90 Encounter for supervision of normal pregnancy, unspecified, unspecified trimester (principal)
CPT/HCPCS: 87081

== ENCOUNTER 2023-04-21 07:00 | Inpatient (IN) | payer BC, SELFPAY ==
[2023-04-21] VITALS (33 sets, daily range): BP systolic 98–137; BP diastolic 52–85; PULSE 62–93; TEMP 36.5–37.1; O2SAT 92–100; BMI 28.8
--- OUTSIDE RECORDS SUMMARY | 2023-04-21 07:05 | XMS RPT_ITS | CCD ---
Author Name Unknown Address [address] [place] [address] Organization [facility] Care Team Providers Care Yeast Pumper Name Role Phone Dari Neves Unavailable Unavailable Gillian Dubois Unavailable Unavailable JB SPAULDING Unavailable Unavailab JB Shay Unavailable Unavailab DEBI Skelton Unavailable Unavailable NIDA CARY Unavailable UnavailCLARENCE [place] M.D. Unavailable Shayna vailable RAMON BUSBY Unavailable Unavailable Gillian Dubois PA-C Primary Care Provider Gillian Dubois PA-C Primary Care Provider DR BENJAMÍN VILLEGAS DO Primary Care Unavailable ROMAN DE LA CRUZ Attending Shayna vailable YUSRA CARVER Primary Care Unavailable YAP, PATRICK F Attending Unavailable DAVID GONG Referring Unavailabl YUSRA Sol Primary Care Unavailable YAP, PATRICK F Attending Unavailable DAVID GONG Referring Unavailabl e EDUARDO BLACKWELL Attending Unavailable DAVID GONG Referring Unavailabl YUSRA Sol Primary Care Unavailable DAVID GONG Referring Unavailabl e YUSRA CARVER Primary Care Unavailable YAP, PATRICK F Attending Unavailable DAVID GONG Referring Unavailabl YUSRA Sol Primary Care Unavailable YAP, PATRICK F Attending Unavailable DAVID GONG Referring Unavailabl e YUSRA CARVER Primary Care Unavailable YAP, PATRICK F Attending Unavailable Medications Current Medications Medication Drug Class(es) Dates Sig (Normalized) Sig (Original) polymyxin b 08021 unt/ml / trimethoprim 1 mg/ml ophthalmic solution [...] 07-26-2021 08:52-0400 Body height 162.6 cm Marlen Wormald PA-C Work Phone: [facility] 07-26-2021 08:52-0400 Body temperature 98.29 [degF] Marlen Wormald PA-C Work Phone: [facility] 07-26-2021 08:52-0400 Body weight 69.4 kg Marlen Wormald PA-C Work Phone: [facility] 07-26-2021 08:52-0400 Diastolic blood pressure 67 mm[Hg] Marlen Wormald PA-C Work Phone: [facility] 07-26-2021 08:52-0400 Heart rate 74 /min Marlen Wormald PA-C Work Phone: [facility] 07-26-2021 08:52-0400 Respiratory rate 16 /min Marlen Wormald PA-C Work Phone: [facility] 07-26-2021 08:52-0400 SaO2% (BldA) [Mass fraction] 98 % Marlen Wormald PA-C Work Phone: [facility] 07-26-2021 08:52-0400 Systolic blood pressure 98 mm[Hg] Marlen Wormald PA-C Work Phone: [facility] Encounters Encounter Date Encounter Type Care Provider Facility Start: 04-19-2023 End: 04-19-2023 ambulatory YUSRA Hammond [facility] Start: 04-12-2023 End: 04-12-2023 ambulatory YUSRA Hammond [facility] Start: 04-06-2023 End: 04-06-2023 ambulatory EDUARDO BLACKWELL [facility] Start: 03-13-2023 End: 03-13-2023 ambulatory [facility] Start: 02-13-2023 End: 02-13-2023 ambulatory DAVID [facility] Start: 02-13-2023 End: 02-13-2023 ambulatory DAVID E [facility] Start: 12-29-2022 End: 12-30-[address] BENJAMÍN VILLEGAS DO Facility:B Start: 07-26-2021 End: 07-26-2021 Subsequent hospital visit by physician [facility] Procedures Date Procedure Procedure Detail Performing Clinician Start: 12-04-2018 Adult depression screening assessment Marlen Beebe PA-C Work Phone: Start: 08-15-2007 CYTOLOGY CLOTH BALER, CONVERTED Khris Fry MD Work Phone: Plan of Treatment Date Care Activity Detail Author Start: 03-06-2024 PAP TESTING PAP TESTING [facility] Start: 08-16-2023 HPV TESTING HPV TESTING [facility] Start: 11-24-2022 Influenza vaccination Influenza Vacc ine (#1) [facility] Start: 03-26-2022 Depression Assessment Depression Ass essment [facility] Start: 11-24-2021 Influenza vaccination INFLUENZA (Sea son Ended) [facility] Start: 12-05-2019 Adult depression scr eening assessment DEPRESSION SCREENING [facility] Start: 2008 Urine microalbumin profile [facility] Start: 06-08-2007 HEPATITIS C SCREENING HEPATITIS C SC REENING [facility] Start: 06-08-2007 HIV SCREENING HIV SCREENING [facility] Start: 1994 COVID-19 VACCINE (1) COVID-19 VACCIN E (1) [facility] Start: 1989 Covid-19 Vaccine (#1) Covid-19 Vacci ne (#1) [facility] Start: 1989 Hepatitis B Vaccine (1 of 3 - 3-dose series) Hepatitis B Vaccine (1 of 3 - 3-dose series) [facility] Immunizations Immunization Date Immunization Notes Care Provider Fa cility 01-07-2020 influenza virus vacc ine, unspecified formulation Khris Fry MD Work Phone: [facility] Payers Date Payer Category Payer Unknown [id number] 2020 Private Health Insurance [facility] UMR CHOICE PLUS [id number] 2020-Present [phone] [address] [address] [place] [address] [facility] [id number] 2017 Unknown [id number] 1989 Unknown [id number] 1989 Unknown [id number] 1989 Unknown [id number] 1989 Unknown [id number] 1989 Unknown [id number] 1989 Unknown [id number] 1989 Unknown [id number] 1989 Unknown [id number] Unknown [id number] Social History Date Type Detail Facility Start: 08-02-2018 Tobacco smoking status NHIS Never sm oked tobacco [facility] Start: 08-02-2018 Tobacco use and exposure Smoke less tobacco non-user [facility] Start: 01-23-2021 Alcohol intake Lifetime non-d iram (finding) [facility] Start: 02-04-2019 End: 01-15-2020 History SDOH Alcohol Frequency 1 [facility] Start: 02-04-2019 History SDOH Financial 5 [facility] Start: 02-04-2019 History SDOH Transport Med 2 [facility] Start: 1989 Sex Assigned At Not on file [facility] Start: 07-16-2021 End: 07-26-2021 Exposure to SARS-CoV-2 (event) Not sure [facility] 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 Never [facility] Average Number of Drinks Not on file [facility] (I/We) worried whealex er (my/our) food would run out before (I/we) got money to buy more. Never true [facility] Progress note 07-26-2021 Note Date & Type Note Facility 07-26-2021 Note HNO ID: [id number] Author: RT Barbie(R) Service: Radiology Author Type: Technologist Type: Progress [...] PERIPHERAL IV DATA: Not applicable SIGNED BY: RT Barbie(R) July 26, 2021 10:54 AM [facility] History of Present illness Narrative 07-26-2021 RT Barbie(R) - 07/26/2021 10:45 AM EDT Note Date [...] PERIPHERAL IV DATA: Not applicable SIGNED BY: RT Barbie(R) July 26, 2021 10:54 AM documented in this encounter [facility] Progress note 07-26-2021 Note Date & Type Note Facility 07-26-2021 Note HNO ID: [id number] Author: Marlen Beebe PA-C Service: ? Author Type: Physician Folder And Notcher Type: Progress Notes Filed: 07/26/2021 9:11 AM Note Text: Subjective Benjie Quarles is a 31 year old female with no significant past medical history who presents to [facility] today for evaluation of bilateral eye [...] which included preparing to see the patient, [id number] patient care, completing clinical documentation, performing a medically appropriate examination, counseling and educating the patient/family/caregiver and ordering medications, tests, or procedures. [facility] Instructions 07-26-2021 Patient Instructions Note Date & [...] the person should be evaluated by an straddle buggy operator. Contact lens wearers People who wear contact [...] within two weeks, an examination with an straddle buggy operator may be recommended. CONJUNCTIVITIS PREVENTION Bacterial and [...] loss of effectiveness. documented in this encounter [facility] History of Present illness Narrative 07-26-2021 Marlen Beebe PA-C - 07/26/2021 8:42 AM EDT Note Date & Type Note Facility 07-26-2021 History of Presen t illness Narrative Subjective Benjie Quarles is a 31 year old female with no significant past medical history who presents to [facility] today for evaluation of bilateral eye [...] which included preparing to see the patient, [id number] patient care, completing clinical documentation, performing a medically appropriate examination, counseling and educating the patient/family/caregiver and ordering medications, tests, or procedures. documented in this encounter [facility] Progress note 06-03-2021 Note Date & Type Note Facility 06-03-2021 Note HNO ID: [id number] Author: Allie Stanley PA-C Service: ? Author Type: Physician Folder And Notcher Type: Progress Notes Filed: 06/03/2021 5:14 PM [...] coronavirus infection ( (more content not included)... [facility] Progress note 01-23-2021 Note Date & Type Note Facility 01-23-2021 Note HNO ID: [id number] Author: Lenore Carvalho APRN.LINK CUTTER Service: ? Author Type: Nurse Practitioner Type: Progress Notes Filed: 01/23/2021 11:16 AM Note Text: This note was created using Experience Headphonesriter. Subjective Benjie Quarles is a 30 year [...] for comfort. -Do (more content not included)... [facility] Evaluation note Note Date & Type Note Facility documented in this encounter [facility] Evaluation note Note Date & Type Note Facility documented in this encounter [facility] Summary Purpose Family History No Family [...] DATE CREATED AUTHOR AUTHOR'S ORGANIZ ATION 09/28/2017 [facility] DATE CREATED AUTHOR AUTHOR'S ORGANIZ ATION 03/13/2019 [facility] DATE CREATED AUTHOR AUTHOR'S ORGANIZ ATION 07/27/2021 [facility] DATE CREATED AUTHOR AUTHOR'S ORGANIZ ATION 07/28/2021 [facility] DATE CREATED AUTHOR AUTHOR'S ORGANIZ ATION 01/03/2023 [facility] ([place]) DATE CREATED AUTHOR AUTHOR'S ORGANIZ ATION 04/20/2023 [facility] Source Comments (unrecognize d section and content) In the event this informatio n is protected by the Federal Confidentiality of Alcohol and Drug Abuse Patient Records regulations: The Federal rules restrict any use of the information to criminally investigate or prosecute any alcohol or drug abuse patient.[facility] the event this information is protected by the Federal Confidentiality of Alcohol and Drug Abuse Patient Records regulations: The Federal rules restrict any use of the information to criminally investigate or prosecute any alcohol or drug abuse patient.[facility] the event this information is protected by the Federal Confidentiality of Alcohol and Drug Abuse Patient Records regulations: The Federal rules restrict any use of the information to criminally investigate or prosecute any alcohol or drug abuse patient.[facility] Reason for Visit (unrecogniz ed section and content) Care Teams (unrecognized sec tion and content) Yeast Pumper Relationship Specialty Start Date End Date Gillian Dubois PA-C [address] [place] [address] [place] [address] PCP - General Family Practice 08/02/18 Yeast Pumper Relationship Specialty Start Date End Date Gillian Dubois PA-C [address] [place] [address] [place] [address] PCP - General Family Medicine 08/02/18 FOR [...] BE BASED ON THE PRIMARY CLINICAL RECORDS. [facility] [employer] [facility]. provides no warranty or guarantee of the accuracy or completeness of information in this document.
[2023-04-21] MEDS: Lactated Ringers 1,000 ML 50 ML IV (08:06)
[2023-04-21] MEDS: 0.9% Normal Saline Single 100 ML IV.SOLN. INTRA-UTER (08:30)
[2023-04-21 08:37] LABS: Absolute Lymphocyte Count 2.48 X10^3/uL (0.83-4.51); Absolute Neutrophil Count 5.9 X10^3/uL (2.0-7.7); Basophil# 0.04 X10^3/uL; Basophil% 0.4 % (0-1); Eosinophil# 0.19 X10^3/uL; Hematocrit 37.6 % (37-47); Hemoglobin 12.7 g/dL (12.0-15.0); Lymphocyte # 2.48 X10^3/ul (0.83-4.51); Lymphocyte % 25.9 % (19-41); Mean Corp Hgb Conc 33.8 g/dL (32-36); Mean Corpuscular Hgb 31.1 pg (27.0-32.0); Mean Corpuscular Volume 92.2 fL (81-99); Mean Platelet Vol. 10.7 fl (6.2-12.0); Monocyte# 0.81 X10^3/uL; Monocyte% 8.4 % (0-10); NRBC Flagged by Analyzer 0 % (0-5); Neutrophil # 5.93 X10^3/uL (2.7-7.7); Neutrophil % 61.8 % (47-70); Platelet Count 202 K/mm3 (150-450); RBC Distribution Width CV 12.3 % (11.6-14.6); RBC Distribution Width SD 40.9 fl (35.1-43.9); Red Blood Count 4.08 M/mm3 (4.2-5.4); White Blood Count 9.6 K/mm3 (4.4-11.0)
--- NOTE | 2023-04-21 08:52 | HP.PCM.OB_ITS ---
HPI - General General Date of Admission: 04/21/23 HPI Narrative SENA KRUGER, is a 32 y/o @ 37 weeks who presents to L&D for IOL for pemphygoid gestationis. She is on 20 mg of prednisone daily Maternal Data Information CHELI Calculator Estimated Delivery Date Method Current WG Current Estimate 05/12/23 LMP (Certain) 37w 0d PFSH PFS Medical History (Updated 04/21/23 @ 07:48 by Arleen Razo) Anxiety Gestational thrombocytopenia PCOS (polycystic ovarian syndrome) Pemphigoid Psoriasis Home Medications calcium citrate 150 mg capsule 1 mg PO DAILY vitamins 01/17/21 [History Last Taken Unknown] cholecalciferol (vitamin D3) 25 mcg (1,000 unit) capsule (Vitamin D3) 25 mcg PO DAILY vitamins 01/17/21 [History Last Taken Unknown] clobetasol 0.05 % topical cream 1 applic topical DAILY psoriasis 01/17/21 [History Last Taken Unknown] docusate sodium 100 mg capsule (Colace) 100 mg PO DAILY constipation 01/17/21 [History Last Taken Unknown] omega 6-nth-ebi-fish oil 300 mg-1,000 mg capsule 1 cap PO DAILY vitamins 01/17/21 [History Last Taken Unknown] vit with calcium-iron fum-folic acid 60 mg iron-1 mg tablet 1 tab PO DAILY 01/17/21 [History Last Taken Unknown] prednisone 5 mg tablet 20 mg PO DAILY 04/18/23 [History Last Taken Unknown] Allergy/AdvReac Type Severity Reaction Status Date / Time No Known Allergies Allergy Verified 04/18/23 09:00 Family History (Updated 04/21/23 @ 07:52 by Arleen Razo) Mother Melanoma in situ Hypertension Adult celiac disease Father Hypertension Hyperlipidemia Grandmother COPD (chronic obstructive pulmonary disease) Afib Adult celiac disease Grandfather CVA (cerebral vascular accident) Prostate cancer Surgical History H/O lumpectomy History of gynecologic surgery [place] teeth removed Social History adopted: No household members: family current occupational status: employed 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 Date Name GA/Weeks Outcome Route Bth Weight Infant Gen Labor Lgth An esthesia Del Locatn Provider FOB 01/24/21 Sid 41 live - full term 7lb 6 ounces Male [facility] rush zapata Delivery Date: 01/24/21 Last Updated by: Aydee Dennis MD gestational thrombocytponeia IOL postdates Visit Details Expected Delivery Route/Plan Labor Preferences- CB/BF classes: no labor support person: Jaguar labor intervention preferences: [] pain management options preferred: epidural cut cord/dad catch: yes : yes PP control planned: discussed discussed possible routes of delivery and associated risks: [] special requests: [] Plans Covid status: discussed Flu vaccine: [] Tdap vaccine: [] Rhogam: NA LARC form signed: Yes Problem list reviewed and updated with the most current plan of care details and appropriate orders placed. Relevant counseling for the gestational age provided. Continue routine care and follow up unless otherwise noted in visit notes/problem list details OB Flowsheet Initial Weight: Not Recorded Date -?-?-?-?-?-?-?-?-?-?-?-?- EGA Weight BP Urine Prot -?-?-?-?-?-?-?-?-?-?-?-?- Glucose FHR FuHt Pres Dilation -?-?-?-?-?-?-?-?-?-?-?-?- Effaced St Visit Note 01/29/23 -?-?-?-?-?-?-?-?-?-?-?-?- 25w 2d 170 lb 8 oz 110/74 Nega tive -?-?--?-?-?-?-?-?-?-?-?-?- Negative 150 -?-?-?-?-?-?-?-?-?-?-?-?- SM- no vb lof go od fm no regular ctx SANJUANA monarch having itchy rash on abdomen and palsm- history of bullous pemphigoid, will contact derm. plan MFM anatomy US followup 02/21/23 -?-?-?-?-?-?-?-?-?-?-?-?- 28w 4d 168 lb 2 oz 108/72 Nega tive -?-?-?-?-?-?-?-?-?-?-?-?- Negative 146 28 -?-?-?-?-?-?-?-?-?-?-?-?- MH-No VB, LOF. G ood FM. Has not done 3 hr GTT and stressed importance. Larc 03/06/23 -?-?-?-?-?-?-?-?-?-?-?-?- 30w 3d 167 lb 2 oz 99/68 Nega tive -?-?-?-?-?-?-?-?-?-?-?-?- Negative 145 30 -?-?-?-?-?-?-?-?-?-?-?-?- kw-no vb/lof/ctx . good fm. all over rash. steroid cream from derm helping. passed 3 hour gct. has FMLA paper here and will corn picker at next appt. kw-no vb/lof/ctx. good fm. a ll over rash. steroid cream from derm helping. passed 3 hour gct. FMLA paper complete and given back to pt. 03/23/23 -?-?-?-?-?-?-?-?-?-?-?-?- 32w 6d 168 lb 119/80 Negative -?-?-?-?-?-?-?-?-?-?-?-?- Negative 140 32 -?-?-?-?-?-?-?-?-?-?-?-?- SM- co itching l esions still but not severe, not needing steroids at this time. no vb lof good fm no regular ctx. 04/02/23 -?-?-?-?-?-?-?-?-?-?-?-?- 34w 2d 166 lb 4 oz 111/77 Nega tive -?-?-?-?-?-?-?-?-?-?-?-?- Negative 140 34 Cephalic -?-?-?-?-?-?-?-?-?-?-?-?- SM- no vb lof go od fm no regular ctx has singificant increase in skin lesions, improving somewhat with steroids, will fu with derm and get mfm consult 04/16/23 -?-?-?-?-?-?-?-?-?-?-?-?- 36w 2d 167 lb 110/70 Trace -?-?-?-?-?-?-?-?-?-?-?-?- Negative 140 -?-?-?-?-?-?-?-?-?-?-?-?- MH-NST only reac tive 04/18/23 -?--?-?-?-?-?-?-?-?-?-?-?- 36w 4d 169 lb 125/73 Negative -?-?-?-?-?-?-?-?-?-?-?-?- Negative 144 34 Cephalic 1 -?-?-?-?-?-?-?-?-?-?-?-?- 50 -3 JV- bpp is for tomorrow. planning IOL for sunday. JV- GBS done today. bpp is f or tomorrow. planning IOL for sunday. ROS Constitutional Constitutional: Denies change in weight, fatigue, fever(s), headache(s), poor appetite or weakness Eyes Eyes: Denies blurry vision, change in vision, seeing flashes or spots in vision ENT HEENT: Denies dizziness, headache(s), loss taste/smell or sore throat Cardiovascular Cardiovascular: Denies chest pain, dizziness, dyspnea, irregular heart rhythm, leg edema, palpitations, rapid heart rate or vomiting Respiratory/Chest Respiratory/Chest: Denies chest tightness, cough, dyspnea or breast pain Gastrointestinal Gastrointestinal: Denies abdominal pain, anorexia, constipation, cramping, diarrhea, hemorrhoids, vomiting or weight changes Genitourinary Genitourinary: Denies dysuria, flank pain, genital lesions, genital pain, urinary frequency or urinary urgency Musculoskeletal Musculoskeletal: Denies back pain, difficulty walking, joint pain, limited range of motion, muscle cramps or numbness Integumentary Integumentary: Denies lesions or unusual bruising Neurologic Neurologic: Denies abnormal movements, abnormal speech, dizziness, numbness, seizure-like activity or syncope Psychiatric Psychiatric: Denies anxiety, behavioral changes, change in appetite, change in libido, cognitive impairment, confusion, depression, difficulty concentrating, hallucinations or suicidal thoughts Endocrine Endocrinology: Denies excessive sweating, polydipsia or polyuria Hematologic/Lymphatic Hematologic/Lymphatic: Denies easy bleeding, easy bruising or lymphadenopathy Allergic/Immunologic Allergic/Immunologic: Denies itchy eyes, lip swelling, seasonal rhinorrhea, rhinitis, throat swelling, tongue swelling, eczemia, wheezing or asthma Vital Signs Vital Signs Vital Signs: 04/21/23 08:23 04/21/23 08:23 04/21/23 08:23 Temperature Temperature Source Temporal Pulse Rate 68 Blood Pressure 111/70 BP Systolic 111 BP Diastolic 70 04/21/23 08:23 Temperature 98.0 F Temperature Source Pulse Rate Blood Pressure BP Systolic BP Diastolic Weight Weight: 167 lb 8.821 oz Body Mass Index (BMI) 28.8 Physical Exam Const alert, oriented x3, no apparent distress and healthy appearing General Appearance: cooperative; Negative for anxious HEENT normocephalic Face and Sinus: normal facial exam Eyes EOMs intact bilaterally and no scleral icterus General Eye: normal appearance of both eyes Neck full ROM and supple Lymph Lymphatic: no lymphadenopathy noted Chest Chest: abnormal inspection of the chest Resp normal respiratory effort Effort and Inspection: able to speak in complete sentences Cardio regular rate GI soft to palpation and non-tender Inspection: gravid Palpation: soft; Negative for tender external exam normal Manual OB Exam: other cx /-3, lucero bulb paced in cervix and inflated with 50 cc ns Back/Spine no CVA tenderness Extremity normal to inspection, full ROM and no clubbing, cyanosis or edema General Extremity: Negative for calf tenderness or edema Skin Lesions: no lesions Rashes: no rashes Psych mental status grossly normal Labs Labs Labs: Blood Type O POSITIVE Antibody Screen NEGATIVE Hct 37.6 % (37-47) Hgb 12.7 g/dL (12.0-15.0) Syphilis Total Ab Non-reactive VZV IgG Antibody 1303 index (Immune >165) Rubella IgG Antibody Reactive (Nonreactive) Hep Bs Antigen Non-Reactive (Nonreactive) Hepatitis C Antibody Non-Reactive (Nonreactive) Chlamydia DNA (SETH) Negative (Negative) N.gonorrhoeae DNA (SETH) Negative (Negative) HIV 1&2 Antibody Non-Reactive (Nonreactive) Glucose 1 Hr 50 gm 150 mg/dL (70-140) H Gest Glucose Tolerance MG/DL Assessment & Plan (1) Pemphigoid: COMMENT: on steroids currently. plan for 37 week IOL and hydrocortisone stress dose during labor; set up for sunday04/23/23 @ 7am gestational. Had after first son. Had flare 2nd trim(skin rash). Steroid taper helps. Sees Dr Farnsworth. topical steroids PRN. antihistamines PRN. no biopsy- offered and declined. worsening- MFM consult ordered, will take 5mg prednisone now, get celestone x 2, consider deliveyr at 37. plan BPP thursday 04/06 if mfm visit is sunday (2) Abnormal glucose affecting : COMMENT: Normal 3 hr GTT (3) Supervision of normal : QUALIFIERS: Normal : other normal Trimester: third trimester Qualified Code(s): Z34.83 - Encounter for supervision of other normal , third trimester COMMENT: PRR CHELI 05/12/23 boy Marcos PARI Sid Ray (4) Anxiety: COMMENT: no meds, just counseling in past (5) : QUALIFIERS: Weeks of gestation: 36 weeks Qualified Code(s): Z3A.36 - 36 weeks gestation of COMMENT: carrier, genetic, and ntd screening declined. anatomy done at [facility]- questionable abnormality about ventricles. Per MFM no abnormality. Growth US Q4wk. 03/13: 40% PLAN: Plan Patient presents IOL, plan management for with pitocin/AROm after bulb comes out 100 mg solu-cortef now Pain management: plans epidural. GBS negative. Management of any complications: pemphigoid I have reviewed the [facility] and made any clinically relevant updates.
[2023-04-21 09:06] LABS: Syphilis Antibodies Non-reactive
[2023-04-21] MEDS: Hydrocortisone Sod Succinate 100 MG/2 ML Vial IV (09:12)
[2023-04-21] MEDS: Oxytocin 15 Units/NS 250ml 15 UNITS/250 ML IV.SOLN 2 UNITS IV (09:17)
[2023-04-21] MEDS: LACTATED RINGERS 500 ML 999 ML IV ×2 (15:29→16:28)
[2023-04-21] MEDS: fentaNYL-bupivacaine (epidural) 100 ML BAG EPIDURAL ×2 (17:29→21:50)
[2023-04-21] MEDS: Ensure Clear 120 ML Liquid PO ×2 (17:47→23:01)
[2023-04-21] MEDS: Lactated Ringers 1,000 ML 200 ML IV (19:43)
[2023-04-22] VITALS (55 sets, daily range): BP systolic 93–127; BP diastolic 51–82; PULSE 64–96; RESP 14–16; TEMP 36.2–37.1; O2SAT 96–100
[2023-04-22] MEDS: Lactated Ringers 1,000 ML 200 ML IV ×2 (00:14→04:32)
[2023-04-22] MEDS: fentaNYL-bupivacaine (epidural) 100 ML BAG EPIDURAL (02:25)
[2023-04-22] MEDS: Amnioinfusion- 0.9% NS 1,000 ML IV.SOLN. 125 ML INTRA-UTER (06:01)
[2023-04-22] MEDS: Oxytocin 15 Units/NS 250ml 15 UNITS/250 ML IV.SOLN 334 UNITS IV (07:18)
--- NOTE | 2023-04-22 07:31 | OP.PCM_ITS ---
Assessment & Plan (1) (spontaneous vaginal delivery): COMMENT: LC IOL 37 weeks. 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 plan for 37 week IOL and hydrocortisone stress dose during labor; 40mg prednisone . set up for sunday04/23/23 @ 7am gestational. Had after first son. Had flare 2nd trim(skin rash). Steroid taper helps. Sees Dr Farnsworth. topical steroids PRN. antihistamines PRN. no biopsy- offered and declined. worsening- MFM consult ordered, will take 5mg prednisone now, get celestone x 2, consider deliveyr at 37. plan BPP thursday 04/06 if mfm visit is sunday Maternal Data Information CHELI Calculator Estimated Delivery Date Method Current WG Current Estimate 05/12/23 LMP (Certain) 37w 1d Final CHELI: 05/12/23 Final CHELI Source: LMP Gestational age: 37.1 Vaginal Delivery Operative Information Date of Procedure: 04/22/23 Pre-Operative Diagnosis: see problem list Post-Operative Diagnosis: Surgery / Procedure Performed: Spontaneous Vaginal Delivery Type of Anesthesia: Epidural Drain: [place] to straight drain Estimated Blood Loss: 200 Time of Delivery: 07:07 Findings Description of Procedure: Patient began pushing and delivered the head in the JEANETTE presentation. The head was delivered atraumatically and a loose nuchal cord ?1 was identified and easily reduced over the 's head. The anterior and posterior shoulders delivered without complication followed by the rest of the and the infant was placed on the maternal abdomen. Delayed cord clamping was employed for approximately 60 seconds. Cord was clamped and cut and gentle traction was applied to the cord and the placenta delivered spontaneously immediately following it was noted to be intact with three-vessel cord. The perineum and vagina were inspected and noted to have small vaginal mucosa laceration, repa ired with 3.0. EBL was 200cc. Patient and tolerated delivery well, entered recovery phase bonding skin to skin. updated on delivery, routine pp orders with adding 40mg prednisone for pemphigoid per dermatology recommendation. Presentation: Vertex Amniotic Membrane Rupture Type: Artificial Time of Membrane Rupture: 1821 Amniotic Fluid Description: Clear Placental Delivery Description: Spontaneous Placenta Disposition: [facility] Cord Vessel Description: 3 Vessels Cord Entanglement: Around neck x 1, loose Nuchal Cord Compression: With compression A Gender: Male (1 minute): 8 (5 minute): 9 Delayed Cord Clamping: Yes Post Vaginal Delivery Medications Given After Delivery: IV Pitocin Episiotomy Description: None Laceration: Vaginal Extension/lac Procedures Urinary/Genital [id number]: [id number] Vaginal Delivery global pkg
--- NOTE | 2023-04-22 07:38 | DCINST_ITS ---
Discharge Instructions Diet Discharge Diet: No restrictions Activity Discharge Activity: May Not Drive and May Shower May resume sexual activity in: 6 weeks Weight Bearing Status: Full weight bearing Dressing / Incision Call your doctor if your incision/area has: Sudden Increased Bleeding, Increased Pain/ Swelling and Foul Smelling Discharge Call your doctor if you observe: Fever of 101 or Higher, Numbness or Tingling, Change in Color, Inability to urinate, Inability to have a bowel movement, Using more than 1 pad per hour, Shortness of breath, Dizziness, Fainting spells, Chest pain, Calf discomfort and Uncontrolled pain Follow Up Care Please Follow Up With: Aleisha Love CNM When: 6 weeks , please call office to make an appointment. Congratulations on the of your baby boy!! Test Results: Test results from this visit will be discussed in further detail at your follow- up appointment, if applicable. Discharge Plan Admission Admit Date/Time: 04/21/23 07:00 Attending Provider: Aleisha Love Primary Care Provider: Stephanie Crowe Discharge Orders/Prescriptions Prescriptions: No Action prednisone 5 mg tablet 20 mg PO DAILY clobetasol 0.05 % Cream 1 applic TOPICAL DAILY Fa 60 mg iron-1 mg Tablet 1 tab PO DAILY docusate sodium [Colace] 100 mg Capsule 100 mg PO DAILY calcium citrate 150 mg Capsule 1 mg PO DAILY cholecalciferol (vitamin D3) [Vitamin D3] 25 mcg (1,000 unit) Capsule 25 mcg PO DAILY omega 4-rty-aai-fish oil 300-1,000 mg Capsule 1 cap PO DAILY Referrals / Follow Up: Stephanie Crowe, [Primary Care Provider] -
[2023-04-22] MEDS: Oxytocin 15 Units/NS 250ml 15 UNITS/250 ML IV.SOLN 83 UNITS IV (07:50)
[2023-04-22] MEDS: Acetaminophen 500 MG Tablet 1000 MG PO ×2 (09:11→22:21)
[2023-04-22] MEDS: predniSONE 20 MG Tablet 40 MG PO (09:11)
[2023-04-23 03:46] VITALS: BP 121/69; PULSE 62; RESP 16; TEMP 36.6
--- NOTE | 2023-04-23 08:22 | PCM.PN.OB ---
Subjective Subjective Patient doing well without complaints. Tolerating PO. Ambulating and voiding without difficulty. Feeding well. Denies chest pain, shortness of breath, calf pain/swelling, fevers, chills, lightheadedness. Objective Data Objective Data Vital Signs: Vital Signs Temp Pulse Resp BP Pulse Ox O2 Del Method 97.8 F 62 16 121/69 H 96 Room Air 04/23/23 03:46 04/23/23 03:46 04/23/23 03:46 04/23/23 03:46 04/22/23 16:22 04/23/23 03:46 Oxygen Delivery Method Room Air Weight: 167 lb 8.821 oz Body Mass Index (BMI) 28.8 Intake & Output: Intake and Output for Last 24 Hours 04/21/23 04/22/23 04/23/23 23:59 23:59 23:59 Intake Total 1969.96 / 1969.96 2878.50 / 2878.50 Output Total 1300 / 1300 4450 / 4450 Balance 669.96 / 669.96 -1571.50 / -1571.50 Lab / Micro Data 04/21/23 08:06 Physical Exam Const alert and no apparent distress Neck full ROM Chest inspection of chest normal Resp normal respiratory effort, normal air movement and no retractions Cardio regular rate and regular rhythm GI normal to inspection, nondistended, normoactive bowel sounds Narrative: fundus firm, below u. normal lochia Extremity normal to inspection and full ROM Skin Skin Narrative: diffuse papule rash, no new lesions. on prednisone Neuro oriented x3 Psych mental status grossly normal Assessment & Plan (1) (spontaneous vaginal delivery): COMMENT: LC IOL 37 weeks. 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 plan for 37 week IOL and hydrocortisone stress dose during labor; 40mg prednisone . has follow up appt with dermatology at 2 week PP. gestational. Had after first son. Had flare 2nd trim(skin rash). Steroid taper helps. Sees Dr Farnsworth. topical steroids PRN. antihistamines PRN. no biopsy- offered and declined. worsening- MFM consult ordered, will take 5mg prednisone now, get celestone x 2, consider deliveyr at 37. plan BPP thursday 04/06 if mfm visit is sunday PLAN: Plan s/p PPD #1 1. routine post delivery care 2. breast feeding- support given, desires to see today as well 3. rh positive 4. rubella immune 5. plan d/c home today.
[2023-04-23 08:32] VITALS: BP 119/73; PULSE 70
[2023-04-23 08:40] VITALS: BP 119/73; PULSE 70; RESP 15; TEMP 36.3
[2023-04-23] MEDS: predniSONE 20 MG Tablet 40 MG PO (08:45)
--- NOTE | 2023-04-23 11:54 | CASEMGMT ---
Social Work Assessment Labor and Delivery Unit Patient Address: [address] [place] [address] Phone number: [phone] Date of Referral: 04/23/23 Time of Referral:? 829 Referred By: Aleisha Love Date of Intervention: ??04/23/23 Time of Intervention:? 1029 Reason for Referral:? History of anxiety Sw completed chart review and acknowledged history of maternal history of anxiety. Sw presented to bedside and introduced self to mother of baby (ANDIE- Benjie) and father of baby (FOBassam- Srinivasa). Sw explained reason for sw involvement and completed psychosocial assessment. History obtained from: medical records, MOB and FOB Household composition: Currently residing in the family home is ANDIE, RAFFI their older son (Sid: : 01/24/21) and now baby. Parents deny any issues or concerns with their housing. Patient's parent/guardian status:? ?Parents state that they have been together for 3.5 years. They were introduced to each other by a mutual friend. No concerns reported regarding domestic violence and intimate partner violence. Medical History: ?ANDIE is 32 year old female who is 2, para 1-now 2 following labor and delivery of . ANDIE started care with [place], and then had to transfer care to [place]. ANDIE received routine care during . ANDIE delivered baby at 37 weeks gestation via vaginal delivery. Baby boy, named Marcos Seals, was born on 04/22/23 weighing 5lb 16oz and his apgars were 8 and 9 at one and five minutes of life respectfully. ANDIE states that she is breast feeding and has a pump for home. Baby will be followed by Dr. Champion for pediatrics. Educational Status:? Both parents graduated from high school. No concerns with reading, learning or comprehension. ANDIE obtained her Masters degree. Financial Status: Both parents are gainfully employed outside of the home. FOBassam works at [employer] in the [employer] and is able to take time off of work for paternity leave. 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 ANDIE is able to take 12 weeks off of work for maternity leave. Infant Supplies:?? Parents have obtained necessary baby supplies, including: car seat, safe sleep space, clothes, diapers, wipes and a breast pump. Childcare/Caregiver(s):? MOB will be the primary caregiver to baby while she is on maternity leave, along with FOB when he is not at work. When both parents have returned to work baby will attend a daycare ([facility]). Transportation:?Both parents have their drivers license and reliable means of transportation. No transportation barriers at this time. Programs/Agencies Involved: ??MOB states that she has a history of engaging in counseling at [facility]. ? Children Services/Legal Issues:???No history of children services involvement. No issues or concerns warranting referral at this time. Behavioral Health Issues: ??Mental Health History:??FOB denies mental health diagnoses. MOB states that she has been diagnosed with anxiety. MOB states that she struggles to transition to big life changes (moving, job changes, becoming a mom, etc.) MOB states that she has had panic attacks in the past, and engaged in counseling to help her learn coping skills. MOB states that she is familiar of signs and symptoms of baby blues and depression and anxiety to be on the look out for. ? Substance Use History:?Parents deny substance use. ? Family History:?Both parents indicate they each have some family members with addiction use disorders. MOB states that her paternal grandpa was an alcoholic. FOB states that her brother has an addiction use disorder. FOB states that his brother is not a caregiver to baby. ??? Drug Screens: ??No urine screens observed in chart review. Family/Social Stressors:? Parents deny any stressors or concerns at this time. Support Systems: MOB states that maternal grandparents are their biggest supports. Depression/Shaken Baby/Safe Sleeping:? Sw educated parents on signs and symptoms of baby blues, depression and anxiety. Parents expressed understanding and appreciation for literature provided. Sw educated parents on shaken baby prevention and ABCs of safe sleep. Parents expressed understanding. ASSESSMENT:? MOB and baby admitted following labor and delivery. MOB and FOB both present and engaged in psychosocial assessment. Both parents made and maintained eye contact during assessment. Parents express understanding of baby blues and depression and anxiety to be on the lookout for during MOB journey. MOB open to getting reconnected to mental health supports if warranted. Parents have supports in place and have obtained all necessary baby supplies. Parents appreciative of sw involvement and support and information/ education provided. PLAN:? MOB and baby to be discharged when medically ready. ?No other services requested or indicated. Ronel Varner, ELECTRIC SIGN WIRER, FREEZER ASSISTANT
== END 2023-04-23 11:45 | disposition home or self-care (01) | DRG 806 ==
PROVIDERS: Obstetrics & Gynecology; Admitting Provider Registered Nurse; PCP Family Medicine; Visit Provider Registered Nurse
DX: O99.72 Diseases of the skin and subcutaneous tissue complicating childbirth (principal); Z37.0 Single live birth; L12.9 Pemphigoid, unspecified; F41.9 Anxiety disorder, unspecified; O69.2XX0 Labor and delivery complicated by other cord entanglement, with compression, not applicable or unspecified; O99.344 Other mental disorders complicating childbirth; O69.81X0 Labor and delivery complicated by cord around neck, without compression, not applicable or unspecified; Z3A.37 37 weeks gestation of pregnancy; Z79.52 Long term (current) use of systemic steroids
CPT/HCPCS: 59025; 59050; 85025; 86780; 86850; 86900; 86901; 99221; J7030; J7120; G0378

== ENCOUNTER → 2024-05-05 | Outpatient (CLI) | payer BC, SELFPAY ==
[2024-05-07 13:07] LABS: SJOGREN'S Anti-SS-A test 0.2 AI (0.0-0.9); SJOGREN'S Anti-SS-B test < 0.2 AI (0.0-0.9)
== END | disposition home or self-care (01) ==
PROVIDERS: PCP Family Medicine; Referring Provider Family Medicine; Visit Provider Family Medicine
DX: R76.8 Other specified abnormal immunological findings in serum (principal)
CPT/HCPCS: 36415; 84443; 86235; 86431

== ENCOUNTER 2024-09-09 12:00 | Outpatient (RCR) | payer BC, SELFPAY ==
--- NOTE | 2024-07-28 18:56 | HP.PTEVAL_ITS ---
Patient's Visit Information Visit Information Visit Information: SENA KRUGER is a 34 year old F referred to Physical Therapy by Dr. Lashanda Orellana DC with a diagnosis of BACK PAIN/LUMBAR DYSFUNCTION. Date of Evaluation: 07/24/24 Physical Therapist: Deborah Guidry PT, Cert MDT Visit Plan Frequency: 1-2x /Week Duration: 6-8 VISITS Plan: MODALITIES NEEDED TO DECREASE PAIN AND INFLAMMATION. POSTURE CORRECTION/STRENGTHENING, INSTRUCTION IN APPROPRIATE BODY MECHANICS AND ACTIVITY MODIFICATIONS. DLS STARTING WITH A NEUTRAL SPINE PROGRESSING ROM TOLERATED. TUAN LE ROM, STRETCHING AND STRENGTHENING. HEP INSTRUCTION. 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 2 CHILDREN AGES 15 MONTHS AND 3.5 YEARS OLD. Present symptoms: L LOW BACK PAIN/SI JOINT REGION PAIN ACCORDING TO WHERE PATIENT POINTS TO THE PAIN. L BUTTOCK, THIGH (POSTERIOR), AND LEG (MICHELE) PAIN TO ANKLE. PATIENT DENIES LE NUMBNESS AND TINGLING. PATIENT DENIES L FOOT SX'S. SAME SX'S ON THE R RECENT 2 WKS AGO. TUAN LBP/SI JT PAIN FOR 15 MONTHS. Present since: ABOUT 4 YEARS AGO Pain Scale: WORST 6/10 LEAST 0/10 Currently: 1/10 Is it getting better, worse or staying the same: GETTING BETTER IN THE LAST WEEK - PATIENT RELATES THE IMPROVEMENT TO NOT WEARING HER NEW WORK SHOES. Commenced as a result of: NO APPARENT REASON DURING FIRST THEN WENT AWAY AFTER DELIVERY UNTIL GOT WITH SECOND 18 MONTHS LATER AND PAIN CAME RIGHT BACK. Symptoms at onset: TUAN SI JT PAIN Worse: NEW SHOES A MONTH AGO AND THAT IS WHEN EXPERIENCED PAIN DOWN THE LEG FOR THE FIRST TIME - FIRST DOWN THE RIGHT LEG FOR ABOUT 2 WEEKS, STOPPED WEARING THE NEW SHOES AND THE R LE PAIN WENT AWAY BUT THEN STARTED HAVING PAIN DOWN THE LEFT LEG. *SITTING, BENDING, PROLONGED STANDING AND WALKING. Better: STRETCHING - LEARNED ON THE INTRANET (SITTING AND SIDEBENDING), SQUEEZING GLUTES AND SELF ADJUSTING USE TO HELP BUT CAN'T DO IT ANYMORE, SITTING ON THE FLOOR AND TWISTING USE TO HELP. CHIROPRACTIC ADJUSTMENTS GIVE TEMPORARY HELP - MINUTES TO HOURS OF RELIEF. Disturbed sleep: YES Previous history/Previous treatment: NO PRIOR HISTORY OF PAIN DOWN LEGS. 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 Treatment this episode: CHIROPRACTIC Coughing/sneezing/straining: NEGATIVE FOR INCREASED PAIN Gait: CURRENTLY NOTICING L FOOT SLAPS AND L LEG FEELS WEAK WHEN GETTING UP TO WALK ESPECIALLY WHEN L SI AREA FEELS REALLY INFLAMMED. ALSO NEEDING TO USE ARMS MORE ON STEPS WHEN TRYING TO STEPS UP WITH L LE ON STEPS ESPECIALLY WHEN ITS FLARED. Bowel or Bladder Dysfunction: URINARY LEAKING WITH JUMPING Accidents: NO Unexplained weight loss: NO Imagin01/29/24 - NORMAL LUMBAR XRAY PMH/Recent major surgery: PSORIASIS, GESTATIONAL PEMPHIGOID - SKIN BLISTERING RASH - AUTOIMMUNE CONDITION. CONSULT PENDING FOR WORK UP FOR LUPUS AND RA. PCOS. Objective Objective: Sitting/Standing Posture: NORMAL LUMBAR LORDOSIS. NO RELEVANT LATERAL LUMBAR SHIFT. Active Correction of posture: NE Other Observations: ABLE TO HEEL WALK AND TOE WALK BUT C/O L MICHELE WEAKNESS/SORENESS COMPARED TO R. Sensory deficit: TUAN LE LIGHT TOUCH SENSATION GROSSLY INTACT AND SYMMETRICAL ROM deficit: L HIP IR/ER TIGHTNESS COMPARED TO R WITH PAIN WITH OVER-PRESSURE. Motor deficit: TUAN LE'S 5/5 EXCEPT L HIP 4/5 AND L ANKLE DORSIFLEX 4/5. Reflexes: TUAN LE DTR'S 2+ Dural Signs: POSITIVE TUAN LE'S L >R Lumbar mvmt loss: flex - MOD, P L THIGH AND L LEG, NW. REP FLEX ALSO P L THIGH AND L LEG, NW AND THEN MVMT LOSS IS NIL. ext - MIN - NE R SG - NIL - NE L SG - MIN -NE OTHER: + L NARESH TEST. TUAN SI JT DISTRACTION AND COMPRESSION TESTING - NEGATIVE. L HIP DISTRACTION - NEGATIVE. Core strength: FAIR Palpation: INCREASED M. TONE TUAN LUMBAR PARASPINALS L > R. Balance/Special Test Scores Oswestry Low Back Score: 5 Goals Goal 1:: DECREASE C/O LOW BACK AND TUAN LE SX'S BY AT LEAST 75% TO EASE ADL AND WORK FUNCTION Goal Time Frame: 4-6 Weeks Goal 2:: IMPROVE SITTING, BENDING, WORK AND HOMEMAKING FUNCTION WITH 5 POINT BACK OSWESTRY QUESTIONNAIRE SCORE IMPROVEMENT. Goal Time Frame: 4-6 Weeks Goal 3:: INSTRUCT IN PROPHYLAXIS. Goal Time Frame: 4-6 Weeks Rehabilitation Potential Physical Therapy Diagnosis: CORE STIFFNESS AND WEAKNESS WITH LLE WEAKNESS AND + TUAN LE DURAL SIGNS L>R. Rehabilitation Potential: Good Anticipated Interventions Patient/Client Instruction: Educate patient on: Condition, Plan of Care and Risk Factors For the Purpose of:: To improve self management Therapeutic Exercise to Include: Strength training, Body mechanics, Postural training, Flexibilty training, Neuromotor development and Dynamic Lumbar Stabilization For the Purpose of:: To decrease pain, To improve muscle performance and motor function, To increase tolerance to activity/condition/position, To improve ability of physical actions for home/community/work/leisure, To increase flexibility/ROM and To improve self management Thermo therapy (hot pack): Yes Ultrasound (thermal/non thermal): Yes For the Purpose of:: To decrease pain and To improve nutrient delivery to tissue Text: Thank you for the opportunity to evaluate your patient. For Medicare and Medicare HMO plans, please review the plan of care and approve it. It will need to be FAXED BACK to us at [phone] for Medicare purposes. For Medicare only, by signing this I certify the plan of care. Please let me know if there are questions or concerns regarding this plan of care. Physician Signature: Date:
== END 2024-09-09 19:00 | disposition home or self-care (01) ==
LOC: PT 12:00
PROVIDERS: PCP Family Medicine; Referring Provider Chiropractor; Visit Provider Chiropractor
DX: M99.03 Segmental and somatic dysfunction of lumbar region (principal); M54.9 Dorsalgia, unspecified
CPT/HCPCS: 97035; 97110; 97162; 97530

== ENCOUNTER → 2024-12-11 | Outpatient (CLI) | payer BC, SELFPAY ==
--- NOTE | 2024-12-11 11:43 | US_ITS ---
PROCEDURE: HEAD/NECK SOFT TISSUE 12/11/2024 REASON FOR EXAM: LEFT NECK LYMPHNODE TECHNIQUE: Procedure Code: USH/N SOFT Modality: US Procedure: HEAD/NECK SOFT TISSUE COMPARISON: None. FINDINGS: A 1.3 x 0.9 x 0.3 cm oval-shaped left neck lymph node. No hyperemia. No fluid. US/Head/Neck Soft Tissue IMPRESSION: A 1.3 x 0.9 x 0.3 cm lymph node in the left neck, nonspecific. Reading Location: [facility]
== END | disposition home or self-care (01) ==
LOC: US 11:43
PROVIDERS: PCP Family Medicine; Referring Provider Family Medicine; Visit Provider Family Medicine
DX: R59.9 Enlarged lymph nodes, unspecified (principal)
CPT/HCPCS: 76536